=== PATIENT | male | born 1990 | race Caucasian/White ===

== ENCOUNTER 2017-04-26 13:06 | Outpatient (CLI) | payer BC, MEDICAID, SELFPAY | END 2017-04-26 15:50 | disposition home or self-care (01) | PROVIDERS: Family Provider Family Medicine; Visit Provider Internal Medicine Nephrology | DX: M81.0 Age-related osteoporosis without current pathological fracture (principal) | CPT/HCPCS: 80048; 96365; J3489 ==

== ENCOUNTER 2018-09-25 17:41 | Emergency (ER) | payer BC, MEDICAID, SELFPAY ==
[2018-09-25 17:42] VITALS: BP 114/71; PULSE 106; RESP 18; TEMP 37; O2SAT 97; BMI 36.0
--- NOTE | 2018-09-25 17:51 | XR_ITS ---
XR chest AP HISTORY: ITS.REASON: fever cough ORDERING PHYSICIAN: Cody Juares MD PATIENT AGE: 28 years COMPARISON: None FINDINGS: There are extremely low lung volumes with underpenetration. There is cardiomegaly. There is a overlying neurostimulator device present with the tip overlying the left apex of the lung. There is elevated right hemidiaphragm with right basilar atelectasis or infiltrate. The left lower lobe is obscured from the overlying soft tissues. No acute bony findings. IMPRESSION: Limited exam with poor aspiration, cardiomegaly and elevated right hemidiaphragm with right basilar atelectasis or infiltrate
--- NOTE | 2018-09-25 17:53 | HMH.EDGENADL ---
ED Disposition Clinical Impression: Poor fluid intake Disposition: Still a Patient Condition on Discharge: Fair Referrals: Toney Christopher [Primary Care Provider] - - Critical Care Critical Care Time: No Attestation: On , the high probability of a clinically significant, sudden or life threatening deterioration of the following system(s) required my full and direct attention, intervention and personal management. The time I documented below is in addition to time spent performing reported procedures but includes the following listed in this critical care notation. Medical Decision Making - Edy Inquiry Pt receiving controlled substance: No Vital Signs: 09/25/18 17:42 Temperature 98.6 F Temperature Source Axillary Pulse Rate [Right Brachial] 106 H Respiratory Rate 18 Blood Pressure [Right Arm] 114/71 Blood Pressure Mean [Right Arm] 85 Blood Pressure Source [Right Arm] Automatic Cuff Blood Pressure Position [Right Arm] Supine 02 Sat by Pulse Oximetry 97 Oxygen Delivery Method Room Air - Lab Data Lab Results 09/25/18 17:50: WBC 7.3, RBC 5.48, Hgb 15.5, Hct 45.6, MCV 83.2, MCH 28.2, MCHC 33.9, RDW 13.2, Plt Count 415, MPV 7.1 L, Neut % (Auto) 58.2, Lymph % (Auto) 30.9, [place] % (Auto) 6.8, Eos % (Auto) 3.1, Baso % (Auto) 1.0, Neut # (Auto) 4.2, Lymph # (Auto) 2.3, [place] # (Auto) 0.5, Eos # (Auto) 0.2, Baso # (Auto) 0.1 09/25/18 17:50: Sodium 139, Potassium 3.9, Chloride 104, Carbon Dioxide 22, Anion Gap 16.9 H, BUN 16, Creatinine 0.91, Estimated Creat Clear 188, Estimated GFR 99, Est GFR ( Amer) 119, Glucose 107 H, Calcium 8.8, Total Bilirubin 0.3, AST 35, ALT 144 H, Alkaline Phosphatase 168 H, Total Protein 7.7, Albumin 3.4, Globulin 4.3 H, Albumin/Globulin Ratio 0.8 L 09/25/18 18:18: Lactate 1.1 09/25/18 18:18: Monoscreen Negative 09/25/18 18:20: Influenza Type A Ag Negative, Influenza Type B Ag Negative 09/25/18 19:14: Group A Strep Rapid Negative Result diagrams: 09/25/18 17:50 09/25/18 17:50 Orders (Tests/Meds): ED MEDICATIONS Discontinued Medications Generic Name Dose Route Start Last Admin Trade Name Marquisq PRN Reason Stop Dose Admin Ketorolac Tromethamine 30 mg 09/25/18 17:52 09/25/18 18:06 Toradol 30mg/Ml Vial IV 09/25/18 17:53 30 mg ONCE ONE Administration Sodium Chloride 1,000 ml 09/25/18 17:53 09/25/18 18:06 Sod Chlor 0.9% 1000ml Bag IV 09/25/18 17:54 1,000 ml BOLUS ONE Administration ORDERS Category Date Time Status CT abdomen pelvis w con Stat Cat Scan 09/25/18 19:[address] soft tissue neck w con Stat Cat Scan 09/25/18 19:32 Ordered XR chest AP Stat Exams 09/25/18 17:51 Taken Levetiracetam (Keppra) Routine Lab 09/25/18 17:50 Received Lipase Stat Lab 09/25/18 17:50 Received Urinalysis and Microscopic Stat Lab 09/25/18 19:44 Ordered Blood Culture Stat Micro 09/25/18 18:03 Received Strep Screen Confirmation Stat Micro 09/25/18 19:14 Received - Radiology Data #1 Image(s): Chest Image Reviewed: Yes I reviewed the patient's radiology image Technique limited by body habitus. No definite infiltrate seen. Vagal Nerve Stimulator present. Medical Decision Narrative: 8:00 PM: At shift change, I have discussed the patient with Dr. Moseley, who will assume care of the patient at this time. I have discussed all clinical information including history, physical and diagnostic study results. Preliminary diagnoses based on information available at this point have been recorded by me. Controlled substance administration and critical care statement are also preliminary, as of the time of handoff. General Adult HPI - General Chief complaint: Weakness Stated complaint: Dehydration Time Seen by Provider: 09/25/18 17:45 Mode of Arrival: EMS Limitations: Physical Limitations Description of Symptoms (Recalled from ER Triage Doc. by RN): Posible dehydration - History of Present Illness HPI narrative: Brought in by ambulance, histor
--- NOTE | 2018-09-25 17:56 | ED_ITS ---
ED Disposition Clinical Impression: Poor fluid intake Disposition: Still a Patient Condition on Discharge: Fair Referrals: Toney Christopher [Primary Care Provider] - - Critical Care Critical Care Time: No Attestation: On , the high probability of a clinically significant, sudden or life threatening deterioration of the following system(s) required my full and direct attention, intervention and personal management. The time I documented below is in addition to time spent performing reported procedures but includes the following listed in this critical care notation. Medical Decision Making - Edy Inquiry Pt receiving controlled substance: No Vital Signs: 09/25/18 17:42 Temperature 98.6 F Temperature Source Axillary Pulse Rate [Right Brachial] 106 H Respiratory Rate 18 Blood Pressure [Right Arm] 114/71 Blood Pressure Mean [Right Arm] 85 Blood Pressure Source [Right Arm] Automatic Cuff Blood Pressure Position [Right Arm] Supine 02 Sat by Pulse Oximetry 97 Oxygen Delivery Method Room Air - Lab Data Lab Results 09/25/18 17:50: WBC 7.3, RBC 5.48, Hgb 15.5, Hct 45.6, MCV 83.2, MCH 28.2, MCHC 33.9, RDW 13.2, Plt Count 415, MPV 7.1 L, Neut % (Auto) 58.2, Lymph % (Auto) 30.9, [place] % (Auto) 6.8, Eos % (Auto) 3.1, Baso % (Auto) 1.0, Neut # (Auto) 4.2, Lymph # (Auto) 2.3, [place] # (Auto) 0.5, Eos # (Auto) 0.2, Baso # (Auto) 0.1 09/25/18 17:50: Sodium 139, Potassium 3.9, Chloride 104, Carbon Dioxide 22, Anion Gap 16.9 H, BUN 16, Creatinine 0.91, Estimated Creat Clear 188, Estimated GFR 99, Est GFR ( Amer) 119, Glucose 107 H, Calcium 8.8, Total Bilirubin 0.3, AST 35, ALT 144 H, Alkaline Phosphatase 168 H, Total Protein 7.7, Albumin 3.4, Globulin 4.3 H, Albumin/Globulin Ratio 0.8 L 09/25/18 18:18: Lactate 1.1 09/25/18 18:18: Monoscreen Negative 09/25/18 18:20: Influenza Type A Ag Negative, Influenza Type B Ag Negative 09/25/18 19:14: Group A Strep Rapid Negative Result diagrams: 09/25/18 17:50 09/25/18 17:50 Orders (Tests/Meds): ED MEDICATIONS Discontinued Medications Generic Name Dose Route Start Last Admin Trade Name Freq PRN Reason Stop Dose Admin Ketorolac Tromethamine 30 mg 09/25/18 17:52 09/25/18 18:06 Toradol 30mg/Ml Vial IV 09/25/18 17:53 30 mg ONCE ONE Administration Sodium Chloride 1,000 ml 09/25/18 17:53 09/25/18 18:06 Sod Chlor 0.9% 1000ml Bag IV 09/25/18 17:54 1,000 ml BOLUS ONE Administration ORDERS Category Date Time Status CT abdomen pelvis w con Stat Cat Scan 09/25/18 19:[address] soft tissue neck w con Stat Cat Scan 09/25/18 19:32 Ordered XR chest AP Stat Exams 09/25/18 17:51 Taken Levetiracetam (Keppra) Routine Lab 09/25/18 17:50 Received Lipase Stat Lab 09/25/18 17:50 Received Urinalysis and Microscopic Stat Lab 09/25/18 19:44 Ordered Blood Culture Stat Micro 09/25/18 18:03 Received Strep Screen Confirmation Stat Micro 09/25/18 19:14 Received - Radiology Data #1 Image(s): Chest Image Reviewed: Yes I reviewed the patient's radiology image Technique limited by body habitus. No definite infiltrate seen.
[2018-09-25 18:02] LABS: Basophils # 0.1 K/mm3 (0-0.2); Eosinophils # 0.2 K/mm3 (0.0-0.4); Eosinophils % 3.1 % (0.1-12.0); Hematocrit 45.6 % (42.0-52.0); Hemoglobin 15.5 g/dL (14.1-18.0); Lymphocytes # 2.3 K/mm3 (0.7-4.5); Lymphocytes % 30.9 % (10-50); Mean Corpuscular HGB Conc 33.9 g/dL (31.8-35.4); Mean Corpuscular Hemoglobin 28.2 pg (27.0-31.2); Mean Corpuscular Volume 83.2 fl (80-94); Mean Platelet Volume 7.1 fl (7.4-10.4); Monocytes # 0.5 K/mm3 (0.1-1.0); Monocytes % 6.8 % (1.7-9.3); Neutrophils # 4.2 K/mm3 (1.8-7.8); Neutrophils % 58.2 % (37.0-80.0); Platelet Count 415 K/mm3 (142-424); Red Blood Count 5.48 M/mm3 (4.60-6.20); Red Cell Distribution Width 13.2 % (11.5-17.5); White Blood Count 7.3 K/mm3 (4.8-10.8)
[2018-09-25 18:11] LABS: Alanine Aminotransferase 144 U/L (12-78); Albumin Level 3.4 gm/dL (3.4-5.0); Albumin/Globulin Ratio 0.8 (1.1-1.8); Alkaline Phosphatase 168 U/L (46-116); Anion Gap 16.9 mEq/L (5-15); Aspartate Amino Transferase 35 U/L (15-37); Bilirubin,Total 0.3 mg/dL (0.2-1.0); Blood Urea Nitrogen 16 mg/dL (7-18); Calcium 8.8 mg/dL (8.5-10.1); Carbon Dioxide 22 mmol/L (21.0-32.0); Chloride 104 mmol/L (98-107); Creatinine Clearance Estimated 188 mL/min (50-200); Creatinine,Serum 0.91 mg/dL (0.70-1.30); Estimated Glomerular Filt Rate 99 ml/min (>60); GFR (African American) 119 ML/MIN (>60); Globulin 4.3 gm/dl (1.3-3.2); Glucose 107 mg/dL (74-106); Potassium 3.9 mmoL/L (3.5-5.1); Sodium 139 mmol/L (136-145); Total Protein,Serum 7.7 gm/dL (6.4-8.2)
[2018-09-25 18:31] LABS: Monoscreen (Rapid) Negative (Negative)
[2018-09-25 18:41] LABS: Lactic Acid 1.1 mmol/L (0.4-2.0)
--- NOTE | 2018-09-25 19:15 | PC.NURSE ---
1909 - called lab to see what the results about he strep swab. lab reports that there was never a strep screen sent. informed lab that there was in fact a strep swab sent. lab stated they didn't have one, and that the patient would need to be swabbed again. 1914 - pt reswabbed again, and while RN was sending 2nd strep swab was being sent at this time, lab called and stated they found the swab. notified.
[2018-09-25 19:25] LABS: Strep Scrn Group A (Rapid) Negative (Negative)
[2018-09-25 20:07] LABS: Lipase 110 u/L (73-393)
[2018-09-25 20:36] LABS: Microscopic, Urine URINE MICROSCOPIC (MICROSCOPIC)
[2018-09-25 20:37] LABS: Appearance,Urine CLEAR (Clear); Bilirubin,Urine Negative (Negative); Blood, Urine Negative (Negative); Color,Urine YELLOW (Yellow); Glucose,Urine (UA) Negative (Negative); Ketones,Urine Negative (Negative); Leukocyte Esterase,Urine Negative (Negative); Nitrate,Urine Negative (Negative); Protein,Urine Negative (Negative); Specific Gravity, Urine 1.015 (1.005-1.030); Urobilinogen,Urine 0.2 EU/dl (0.2)
[2018-09-25 20:50] LABS: Bacteria,Urine Trace /lpf; WBC,Urine Occasional #/hpf (0-3)
[2018-09-25 21:08] VITALS: BP 106/51; PULSE 80; RESP 15; TEMP 36.7; O2SAT 98
[2018-09-25 21:34] VITALS: BP 107/59; PULSE 85; RESP 17; TEMP 36.8; O2SAT 97
[2018-09-30 17:08] LABS: Levetiracetam (Keppra) 44.1 ug/mL (10.0-40.0)
== END 2018-09-25 21:37 | disposition home or self-care (01) ==
PROVIDERS: Emergency Provider Emergency Medicine; PCP Family Medicine
DX: E86.0 Dehydration (principal); R63.8 Other symptoms and signs concerning food and fluid intake; R56.9 Unspecified convulsions; G80.9 Cerebral palsy, unspecified
CPT/HCPCS: 36415; 71045; 80053; 80177; 81001; 83605; 83690; 85025; 86318; 87040; 87077; 87086; 87186; 87275; 87276; 87430; 96365; 96367; 96375; 99284

== ENCOUNTER 2018-09-27 11:42 | Observation (INO) ==
--- NOTE | 2018-09-27 11:42 | Emergency Department Note ---
ED Disposition Clinical Impression: Bacteremia due to Gram-positive bacteria Disposition: Admitted as Observation Condition on Discharge: Good Referrals: Toney Christopher [Primary Care Provider] - Time of Disposition: 14:00 - Critical Care Critical Care Time: No Attestation: On , the high probability of a clinically significant, sudden or life threatening deterioration of the following system(s) required my full and direct attention, intervention and personal management. The time I documented below is in addition to time spent performing reported procedures but includes the fo peteg listed in this critical care notation. Medical Decision Making - Medical Records Medical records reviewed: Yes: I reviewed the patient's medical records. - Edy Inquiry Pt receiving controlled substance: No Edy was queried for this patient: No Vital Signs: 09/27/18 11:35 Temperature 98.6 F Temperature Source Temporal Artery Scan Pulse Rate [Right Brachial] 91 H Respiratory Rate 18 Blood Pressure [Right Arm] 119/91 H Blood Pressure Mean [Right Arm] 100 Blood Pressure Source [Right Arm] Automatic Cuff Blood Pressure Position [Right Arm] Sitting 02 Sat by Pulse Oximetry 97 Oxygen Delivery Method Room Air - Lab Data Lab results reviewed: Yes: I reviewed the patient's lab results. Lab Results 09/27/18 11:50: WBC 7.8, RBC 5.42, Hgb 14.9, Hct 46.0, MCV 84.9, MCH 27.6, MCHC 32.5, RDW 13.3, Plt Count 415, MPV 7.0 L, Neut % (Auto) 63.1, Lymph % (Auto) 26.7, [place] % (Auto) 6.3, Eos % (Auto) 2.8, Baso % (Auto) 1.0, Neut # (Auto) 5.0, Lymph # (Auto) 2.1, [place] # (Auto) 0.5, Eos # (Auto) 0.2, Baso # (Auto) 0.1 09/27/18 11:50: Sodium 140, Potassium 4.0, Chloride 107, Carbon Dioxide 26, Anion Gap 11.0, BUN 18, Creatinine 1.01, Estimated Creat Clear 180, Estimated GFR 87, Est GFR ( Amer) 106, Glucose 82, Calcium 8.6, Total Bilirubin 0.2, AST 37, ALT 145 H, Alkaline Phosphatase 167 H, Total Protein 7.7, Albumin 3.5, Globulin 4.2 H, Albumin/Globulin Ratio 0.8 L 09/27/18 11:50: Lactate 1.3 Result diagrams: 09/27/18 11:50 09/27/18 11:50 Orders (Tests/Meds): ED MEDICATIONS Discontinued Medications Generic Name Dose Route Start Last Admin Trade Name Pawel PRN Reason Stop Dose Admin Sodium Chloride 1,000 mls @ 999 mls/hr 09/27/18 12:00 09/27/18 12:41 Sod Chlor 0.9% 1000ml Bag IV 09/27/18 13:00 999 mls/hr .Q1H1M MARGIE Administration Sodium Chloride 1,000 mls @ 999 mls/hr 09/27/18 12:15 Sod Chlor 0.9% 1000ml Bag IV 09/27/18 13:15 .Q1H1M MARGIE - Physician Consults Physician Consulted: med Time: 14:00 Reason -: Admission, Pt condition General Adult HPI - General Chief complaint: Fever Stated complaint: pos blood cultures Time Seen by Provider: 09/27/18 11:41 Mode of Arrival: EMS Source of Information: Parent(s) Limitations: Physical Limitations - History of Present Illness HPI narrative: sick for weeks with sinus symtoms and ? sore throat. Seen here two nights a go, given rocephin and sent home on keflex. all labs were normal. Two blood culture bottles however returned gr + cocci - Related Data Home Medications Medication Instructions Recorded Confirmed Clobazam [Onfi] 20 mg PO BID 09/25/18 09/25/18 Montelukast Sodium [Singulair 10mg 10 mg PO PM 09/25/18 09/25/18 tablet] Omeprazole Magnesium [Prilosec Otc 20 mg PO DAILY 09/25/18 09/25/18 20mg Tab] Topiramate [Topamax 100mg tablet] 300 mg PO DAILY 09/25/18 09/25/18 Topiramate [Topamax 100mg tablet] 500 mg PO HS 09/25/18 09/25/18 Zonisamide [Zonegran] 150 mg PO BID 09/25/18 09/25/18 levETIRAcetam [Keppra 500mg tablet] 2,000 mg PO BID 09/25/18 09/25/18 Allergies Allergy/AdvReac Type Severity Reaction Status Date / Time carbamazepine [From TEGRETOL] Allergy Mild Verified 09/25/18 17:49 [facility] [place] History - Hepatitis A Screen Attestation statement:: This patient has been screened for Hepatitis A risk factors. I have reviewed the patient's past medical history: Yes ROS Obtained: Yes All systems reviewed & no additional complaints - Constitutional Constitutional: Reports weakness - Eyes Eyes: Denies eye discharge - ENT Ears, Nose, Mouth, and Throat: Denies neck pain, Reports post nasal drip, Reports sinus pressure, Reports sore throat - Cardiovascular Cardiovascular: Denies chest pain, Denies chest pain at rest, Denies diaphoresis, Denies dyspnea - Respiratory Respiratory: No chest congestion, No cough - Gastrointestinal Gastrointestingal: Denies: abdominal pain, diarrhea, vomiting - Musculoskeletal Musculoskeletal: Denies joint stiffness, Denies joint swelling, Reports muscle weakness - Integumentary/Breasts Skin/Breast: Denies rash, Denies wounds - Neurologic Neurologic: Denies headache(s) - Hematologic/Lymphatic Henatologic/Lymphatic: Denies easy bleeding, Denies easy bruising Physical Exam - General General appearance: alert, in no apparent distress, lethargic - Head Head exam: atraumatic, normocephalic, normal inspection - Eye Eye exam: Present: normal appearance, PERRL, EOMI - ENT ENT exam: Present: other (dried post phar secretions, dry mucous membranes). Absent: normal exam, normal oropharynx - Neck Neck exam: Present: normal inspection, full ROM, trachea midline. Absent: meningismus, lymphadenopathy - Respiratory Respiratory exam: Present: normal lung sounds bilaterally. Absent: respiratory distress - Cardiovascular Cardiovascular exam: Present: regular rate, normal rhythm. Absent: JVD - Abdominal Exam Abdominal exam: Present: soft, normal bowel sounds. Absent: distention, tenderness, guarding - Extremities Exam Extremities exam: Present: normal inspection, full ROM, normal capillary refill. Absent: calf tenderness - Back Exam Back exam: Present: normal inspection. Absent: tenderness - Neurological Exam Neurological exam: Present: alert, oriented X3 - Psychiatric Psychiatric exam: Present: flat affect - Skin Skin exam: Present: warm, dry, intact, normal color - Lymphatic Lymphatic Findings: no adenopathy
[2018-09-27 12:11] LABS: Basophils # 0.1 K/mm3 (0-0.2); Eosinophils # 0.2 K/mm3 (0.0-0.4); Eosinophils % 2.8 % (0.1-12.0); Hemoglobin 14.9 g/dL (14.1-18.0); Lymphocytes # 2.1 K/mm3 (0.7-4.5); Lymphocytes % 26.7 % (10-50); Mean Corpuscular HGB Conc 32.5 g/dL (31.8-35.4); Mean Corpuscular Hemoglobin 27.6 pg (27.0-31.2); Mean Corpuscular Volume 84.9 fl (80-94); Monocytes # 0.5 K/mm3 (0.1-1.0); Monocytes % 6.3 % (1.7-9.3); Neutrophils % 63.1 % (37.0-80.0); Platelet Count 415 K/mm3 (142-424); Red Blood Count 5.42 M/mm3 (4.60-6.20); Red Cell Distribution Width 13.3 % (11.5-17.5); White Blood Count 7.8 K/mm3 (4.8-10.8)
[2018-09-27 12:18] LABS: Albumin Level 3.5 gm/dL (3.4-5.0); Albumin/Globulin Ratio 0.8 (1.1-1.8); Bilirubin,Total 0.2 mg/dL (0.2-1.0); Calcium 8.6 mg/dL (8.5-10.1); Globulin 4.2 gm/dl (1.3-3.2); Total Protein,Serum 7.7 gm/dL (6.4-8.2)
--- NOTE | 2018-09-27 15:15 | Pharmacy Consult Notes ---
[facility] Pharmacy VTE Monitoring - Patient Demographics Admission date: 09/27/18 Report Date: 09/27/18 Time: 15:15 Allergies/Adverse Reactions: Patient Allergies carbamazepine [From TEGRETOL] Allergy (Mild, Verified 09/25/18 17:49) Height: 1.83 m Weight: 117.934 kg Patient Problems: Current Active Problems (Updated 09/27/18 @ 14:01 by Benjamin Montiel MD) Bacteremia due to Gram-positive bacteria (Acute) - VTE Risk Labs: VTE Related Lab Results Hgb 14.9 g/dL (14.1-18.0) 09/27/18 11:50 Hct 46.0 % (42.0-52.0) 09/27/18 11:50 Plt Count 415 K/mm3 (142-424) 09/27/18 11:50 BUN 18 mg/dL (7-18) 09/27/18 11:50 Creatinine 1.01 mg/dL (0.70-1.30) 09/27/18 11:50 Estimated Creat Clear 180 mL/min (50-200) 09/27/18 11:50 Was VTE Risk Assessment Performed: Yes VTE Score: 6 VTE Risk Level: Moderate Risk - Prophylaxis VTE Prophylaxis Ordered?: Yes Types of VTE Prophylaxis: TEDS Knee High Location of Applied Device: Bilateral Lower Extremeties - VTE Diagnosis Confirmed Treatment or plan recommended: Continue Current Treatment
--- NOTE | 2018-09-27 17:50 | History & Physical Report ---
*Admission Date: 09/27/18 <Merced Rubio 09/27/18 17:56> *Chief complaint: weakness <Merced Rubio 09/27/18 17:56> *History of present illness: Mr. richter is a 28-year-old male with a history of mental retardation, autism, and seizures who has been feeling poorly for the past few weeks. His mother states he had a cold a few weeks ago and within the past week he stopped eating and drinking. He has been extremely weak. He has been having an increase in the number of seizures and his mother states this is normal when he gets sick. He was seen in the emergency room on Monday due to this weakness. His mother states she was told he may have a UTI and he was sent home on antibiotics. Cultures were obtained at that time. The patient's mother received a call from Dr. Moseley last night stating that the patient's blood cultures were positive. He therefore presented back to the emergency room this morning for further evaluation and admission for IV antibiotics. His primary care provider is Dr. Christopher and his neurologist is Dr. Bledsoe. <Merced Rubio 09/27/18 17:56> [facility] History Medical History: Reports:: Gastroesophageal Reflux Disease(GERD), Seizures Denies:: Diabetes Mellitus Type 1, Diabetes Mellitus Type 2, MRSA <Merced Rubio 09/27/18 17:56> *Have you ever received a pneumonia vaccine?: No <Merced Rubio 09/27/18 17:56> *Have you received a flu vaccine this season?: Yes <Merced Rubio 09/27/18 17:56> Other Medical History: Reports: Anemia, Other (Mental retardation, Autism) <Merced Rubio 09/27/18 17:56> Other Surgeries: Yes: EGD, Other (brain surgery age 2, Jtube placement) <Merced Rubio 09/27/18 17:56> - *Social History Alcohol Intake: never <Merced Rubio 09/27/18 17:56> *Occupational Status:: disabled <Merced Rubio 09/27/18 17:56> Household Members: family <Merced Rubio 09/27/18 17:56> *Travel in the last 8 weeks: None <Merced Rubio 09/27/18 17:56> - Psychiatric History Expresses thoughts of harming self/others: None <Merced Rubio 09/27/18 17:56> Suicide Plan Description: No Plan <Merced Rubio 09/27/18 17:56> Family Hx:: Cancer, Diabetes, Heart Attack, Hypertension <Merced Rubio 09/27/18 17:56> Review of Systems - Constitutional Reports fever(s), Reports weakness <Merced Rubio 09/27/18 17:56> - Eyes Denies blurry vision, Denies double vision <Merced Rubio 09/27/18 17:56> - ENT Reports nasal congestion, Reports sore throat <Merced Rubio 09/27/18 17:56> - *Cardiovascular Denies chest pain, Denies rapid, pounding, or irregular heartbeat <Merced Rubio 09/27/18 17:56> - *Respiratory Reports shortness of breath, Denies cough <Merced Rubio 09/27/18 17:56> - *Gastrointestinal Denies abdominal pain, Denies loose stools, Denies nausea, Denies vomiting <Merced Rubio 09/27/18 17:56> - *Genitourinary Reports decreased urination <Merced Rubio 09/27/18 17:56> - *Musculoskeletal Reports muscle weakness <Merced Rubio 09/27/18 17:56> - *Neurologic Reports weakness, Denies headache(s) <Merced Rubio 09/27/18 17:56> Meds Home Medications Medication Instructions Recorded Confirmed Type Clobazam [Onfi] 20 mg PO BID 09/25/18 09/27/18 History Montelukast Sodium [Singulair 10mg 10 mg PO PM 09/25/18 09/27/18 History tablet] Topiramate [Topamax 100mg tablet] 300 mg PO DAILY 09/25/18 09/27/18 History Topiramate [Topamax 100mg tablet] 500 mg PO HS 09/25/18 09/27/18 History Zonisamide [Zonegran] 150 mg PO BID 09/25/18 09/27/18 History levETIRAcetam [Keppra 500mg tablet] 2,000 mg PO BID 09/25/18 09/27/18 History raNITIdine HCl [Ranitidine HCl] 150 mg PO BID 09/27/18 09/27/18 History <AdrienDuke - 09/27/18 18:37> Allergies Allergy/AdvReac Type Severity Reaction Status Date / Time carbamazepine [From TEGRETOL] Allergy Mild Verified 09/25/18 17:49 <AdrienDuke - 09/27/18 18:37> Exam Vital signs and Labs for Last 24 Hours: Temp Pulse Resp BP Pulse Ox 99.3 F 113 H 18 105/76 L 97 09/27/18 15:22 09/27/18 18:10 09/27/18 15:22 09/27/18 15:22 09/27/18 16:16 Laboratory Results - last 24 hr 09/27/18 11:50: WBC 7.8, RBC 5.42, Hgb 14.9, Hct 46.0, MCV 84.9, MCH 27.6, MCHC 32.5, RDW 13.3, Plt Count 415, MPV 7.0 L, Neut % (Auto) 63.1, Lymph % (Auto) 26.7, [place] % (Auto) 6.3, Eos % (Auto) 2.8, Baso % (Auto) 1.0, Neut # (Auto) 5.0, Lymph # (Auto) 2.1, [place] # (Auto) 0.5, Eos # (Auto) 0.2, Baso # (Auto) 0.1 09/27/18 11:50: Sodium 140, Potassium 4.0, Chloride 107, Carbon Dioxide 26, Anion Gap 11.0, BUN 18, Creatinine 1.01, Estimated Creat Clear 180, Estimated GFR 87, Est GFR ( Amer) 106, Glucose 82, Calcium 8.6, Total Bilirubin 0.2, AST 37, ALT 145 H, Alkaline Phosphatase 167 H, Total Protein 7.7, Albumin 3.5, Globulin 4.2 H, Albumin/Globulin Ratio 0.8 L 09/27/18 11:50: Lactate 1.3 <AdrienDuke - 09/27/18 18:37> Temp Pulse Resp BP Pulse Ox 99.3 F 67 18 105/76 L 97 09/27/18 15:22 09/27/18 16:16 09/27/18 15:22 09/27/18 15:22 09/27/18 16:16 Laboratory Results - last 24 hr 09/27/18 11:50: WBC 7.8, RBC 5.42, Hgb 14.9, Hct 46.0, MCV 84.9, MCH 27.6, MCHC 32.5, RDW 13.3, Plt Count 415, MPV 7.0 L, Neut % (Auto) 63.1, Lymph % (Auto) 26.7, [place] % (Auto) 6.3, Eos % (Auto) 2.8, Baso % (Auto) 1.0, Neut # (Auto) 5.0, Lymph # (Auto) 2.1, [place] # (Auto) 0.5, Eos # (Auto) 0.2, Baso # (Auto) 0.1 09/27/18 11:50: Sodium 140, Potassium 4.0, Chloride 107, Carbon Dioxide 26, Anion Gap 11.0, BUN 18, Creatinine 1.01, Estimated Creat Clear 180, Estimated GFR 87, Est GFR ( Amer) 106, Glucose 82, Calcium 8.6, Total Bilirubin 0.2, AST 37, ALT 145 H, Alkaline Phosphatase 167 H, Total Protein 7.7, Albumin 3.5, Globulin 4.2 H, Albumin/Globulin Ratio 0.8 L 09/27/18 11:50: Lactate 1.3 <Merced Rubio - 09/27/18 17:56> I & O for Last 24 hours: Intake & Output 09/24/18 09/25/18 09/26/18 09/27/18 23:59 23:59 23:59 23:59 Intake Total 1690 / 1690 Balance 1690 / 1690 Weight 273 lb 3 oz <Harborton,Duke - 09/27/18 18:37> Intake & Output 09/25/18 09/26/18 09/27/18 09/28/18 11:59 11:59 11:59 11:59 Intake Total 1450 / 1450 Balance 1450 / 1450 Weight 260 lb 273 lb 3 oz <Merced Rubio - 09/27/18 17:56> - Constitutional no acute distress <Merced Rubio - 09/27/18 17:56> - *Routine HEENT Exam Head: Present: normocephalic <Merced Rubio 09/27/18 17:56> Eye: Present: EOMI, PERRL <Merced Rubio 09/27/18 17:56> ENT: Present: mucous membranes dry <Merced Rubio 09/27/18 17:56> - *Routine Neck Exam Present: supple. Absent: lymphadenopathy <Merced Rubio 09/27/18 17:56> - *Routine Respiratory Exam Present: CTA bilaterally <Merced Rubio 09/27/18 17:56> - *Routine Cardiovascular Exam Present: RRR <Merced Rubio 09/27/18 17:56> - *Routine Abdominal Exam Present: soft, normoactive bowel sounds. Absent: tenderness <Merced Rubio 09/27/18 17:56> - *Routine Extremities Exam Absent: cyanosis, clubbing, edema <Merced Rubio 09/27/18 17:56> - *Routine Skin Exam Present: warm. Absent: rash <Merced Rubio 09/27/18 17:56> - *Routine Neurological Exam Patient can move both arms but does have some spasticity, he will not move his legs. He is nonverbal but was able to give a "high 5" at the end of the exam <Merced Rubio 09/27/18 17:56> H&P: Result - Impressions CXR - Overall no change cardiomegaly with low lung volumes and right basilar airspace disease. <Merced Rubio 09/27/18 17:56> Assessment and Plan (1) Poor fluid intake Current visit: No Status: Acute Category: Medical Code(s): R63.8 - Other symptoms and signs concerning food and fluid intake (2) Bacteremia due to Gram-positive bacteria Current visit: Yes Status: Acute Category: Medical Code(s): R78.81 - Bacteremia (3) Weakness Current visit: Yes Status: Acute Category: Medical Code(s): R53.1 - Weakness (4) Autism Current visit: Yes Status: Chronic Category: Medical Code(s): F84.0 - Autistic disorder (5) Seizure disorder Current visit: Yes Status: Chronic Category: Medical Code(s): G40.909 - Epilepsy, unspecified, not intractable, without status epilepticus (6) Elevated LFTs Current visit: Yes Status: Acute Category: Medical Code(s): R94.5 - Abnormal results of liver function studies <Duke Jurado - 09/27/18 18:37> (1) Poor fluid intake Current visit: No Status: Acute Category: Medical Code(s): R63.8 - Other symptoms and signs concerning food and fluid intake (2) Bacteremia due to Gram-positive bacteria Current visit: Yes Status: Acute Category: Medical Code(s): R78.81 - Bacteremia (3) Weakness Current visit: Yes Status: Acute Category: Medical Code(s): R53.1 - Weakness (4) Autism Current visit: Yes Status: Chronic Category: Medical Code(s): F84.0 - Autistic disorder (5) Seizure disorder Current visit: Yes Status: Chronic Category: Medical Code(s): G40.909 - Epilepsy, unspecified, not intractable, without status epilepticus (6) Elevated LFTs Current visit: Yes Status: Acute Category: Medical Code(s): R94.5 - Abnormal results of liver function studies <Merced Rubio - 09/27/18 17:47> - Assessment and plan all Dx Assessment and Plan for all problems:: Saw patient, agree with above note. It does not appear that patient's primary MD was consulted/notified about his current illness. Will continue current care. <Duke Jurado - 09/27/18 18:37> Patient has been started on IV fluids and broad-spectrum antibiotics. Will await final blood cultures. His urine culture from the ER visit on Monday showed no growth. Will discuss further care with Dr. Jurado as well as which home medications to restart. <Merced Rubio - 09/27/18 17:56>
[2018-09-28 07:04] LABS: Basophils % 0.2 % (0.1-2.0); Eosinophils % 0.4 % (0.1-12.0); Hematocrit 41.8 % (42.0-52.0); Hemoglobin 13.8 g/dL (14.1-18.0); Lymphocytes # 1.8 K/mm3 (0.7-4.5); Lymphocytes % 17.9 % (10-50); Mean Corpuscular HGB Conc 33.1 g/dL (31.8-35.4); Mean Corpuscular Hemoglobin 28.3 pg (27.0-31.2); Mean Corpuscular Volume 85.5 fl (80-94); Mean Platelet Volume 7.3 fl (7.4-10.4); Monocytes # 0.6 K/mm3 (0.1-1.0); Monocytes % 5.9 % (1.7-9.3); Neutrophils # 7.5 K/mm3 (1.8-7.8); Neutrophils % 75.5 % (37.0-80.0); Platelet Count 379 K/mm3 (142-424); Red Blood Count 4.89 M/mm3 (4.60-6.20); Red Cell Distribution Width 13.2 % (11.5-17.5); White Blood Count 9.9 K/mm3 (4.8-10.8)
[2018-09-28 07:19] LABS: Anion Gap 13.8 mEq/L (5-15); Calcium 8.3 mg/dL (8.5-10.1); Potassium 3.8 mmoL/L (3.5-5.1)
--- NOTE | 2018-09-28 08:30 | Progress Note ---
<Merced Rubio - Last Filed: 09/28/18 08:26> Internal Medicine - PN: Subj *Date: 09/28/18 *Time: 08:26 Interval history: Patient's mother states he seems a little bit better this morning. He still refuses to drink and the only thing he will eat is putting. He slept well last night. Exam Vital signs and Labs for Last 24 Hours: Temp Pulse Resp BP Pulse Ox 98.0 F 81 17 118/67 94 L 09/28/18 04:00 09/28/18 04:00 09/28/18 04:00 09/28/18 04:00 09/28/18 04:00 Laboratory Results - last 24 hr 09/27/18 11:50: WBC 7.8, RBC 5.42, Hgb 14.9, Hct 46.0, MCV 84.9, MCH 27.6, MCHC 32.5, RDW 13.3, Plt Count 415, MPV 7.0 L, Neut % (Auto) 63.1, Lymph % (Auto) 26.7, [place] % (Auto) 6.3, Eos % (Auto) 2.8, Baso % (Auto) 1.0, Neut # (Auto) 5.0, Lymph # (Auto) 2.1, [place] # (Auto) 0.5, Eos # (Auto) 0.2, Baso # (Auto) 0.1 09/27/18 11:50: Sodium 140, Potassium 4.0, Chloride 107, Carbon Dioxide 26, Anion Gap 11.0, BUN 18, Creatinine 1.01, Estimated Creat Clear 180, Estimated GFR 87, Est GFR ( Amer) 106, Glucose 82, Calcium 8.6, Total Bilirubin 0.2, AST 37, ALT 145 H, Alkaline Phosphatase 167 H, Total Protein 7.7, Albumin 3.5, Globulin 4.2 H, Albumin/Globulin Ratio 0.8 L 09/27/18 11:50: Lactate 1.3 09/28/18 06:30: WBC 9.9 D, RBC 4.89, Hgb 13.8 L, Hct 41.8 L, MCV 85.5, MCH 28.3, MCHC 33.1, RDW 13.2, Plt Count 379, MPV 7.3 L, Neut % (Auto) 75.5, Lymph % (Auto) 17.9, [place] % (Auto) 5.9, Eos % (Auto) 0.4, Baso % (Auto) 0.2, Neut # (Auto) 7.5, Lymph # (Auto) 1.8, [place] # (Auto) 0.6, Eos # (Auto) 0.0, Baso # (Auto) 0.0 09/28/18 06:30: Sodium 139, Potassium 3.8, Chloride 109 H, Carbon Dioxide 20 L D , Anion Gap 13.8, BUN 11 D, Creatinine 0.71 D, Estimated Creat Clear 269, Estimated GFR 131, Est GFR ( Amer) 159 D, Glucose 100 D, Calcium 8.3 L I & O for Last 24 hours: Intake & Output 09/25/18 09/26/18 09/27/18 09/28/18 11:59 11:59 11:59 11:59 Intake Total 1690 / 1690 Balance 1690 / 1690 Weight 260 lb 272 lb 2 oz - Constitutional no acute distress - *Routine Respiratory Exam Present: CTA bilaterally - *Routine Cardiovascular Exam Present: RRR - *Routine Abdominal Exam Present: soft (Nodes in normal and can probably go home which would be a good), normoactive bowel sounds. Absent: tenderness - *Routine Extremities Exam Absent: cyanosis, clubbing, edema Assessment and Plan (1) Poor fluid intake Current visit: No Status: Acute Category: Medical Code(s): R63.8 - Other symptoms and signs concerning food and fluid intake (2) Bacteremia due to Gram-positive bacteria Current visit: Yes Status: Acute Category: Medical Code(s): R78.81 - Bacteremia (3) Weakness Current visit: Yes Status: Acute Category: Medical Code(s): R53.1 - Weakness (4) Autism Current visit: Yes Status: Chronic Category: Medical Code(s): F84.0 - Autistic disorder (5) Seizure disorder Current visit: Yes Status: Chronic Category: Medical Code(s): G40.909 - Epilepsy, unspecified, not intractable, without status epilepticus (6) Elevated LFTs Current visit: Yes Status: Acute Category: Medical Code(s): R94.5 - Abnormal results of liver function studies (7) Bacteremia due to Staphylococcus epidermidis Current visit: Yes Status: Acute Category: Medical Code(s): R78.81 - Bacteremia - Assessment and plan all Dx Assessment and Plan for all problems:: Patient does appear better today. His blood cultures are back and are positive for staph epidermidis. May need to change antibiotics. Will discuss with Dr. Jurado. <Duke Jurado - Last Filed: 09/28/18 08:54> Internal Medicine - PN: Subj *Date: 09/28/18 *Time: 08:53 Exam Vital signs and Labs for Last 24 Hours: Temp Pulse Resp BP Pulse Ox 98.0 F 81 17 118/67 94 L 09/28/18 04:00 09/28/18 04:00 09/28/18 04:00 09/28/18 04:00 09/28/18 04:00 Laboratory Results - last 24 hr 09/27/18 11:50: WBC 7.8, RBC 5.42, Hgb 14.9, Hct 46.0, MCV 84.9, MCH 27.6, MCHC 32.5, RDW 13.3, Plt Count 415, MPV 7.0 L, Neut % (Auto) 63.1, Lymph % (Auto) 26.7, [place] % (Auto) 6.3, Eos % (Auto) 2.8, Baso % (Auto) 1.0, Neut # (Auto) 5.0, Lymph # (Auto) 2.1, [place] # (Auto) 0.5, Eos # (Auto) 0.2, Baso # (Auto) 0.1 09/27/18 11:50: Sodium 140, Potassium 4.0, Chloride 107, Carbon Dioxide 26, Anion Gap 11.0, BUN 18, Creatinine 1.01, Estimated Creat Clear 180, Estimated GFR 87, Est GFR ( Amer) 106, Glucose 82, Calcium 8.6, Total Bilirubin 0.2, AST 37, ALT 145 H, Alkaline Phosphatase 167 H, Total Protein 7.7, Albumin 3.5, Globulin 4.2 H, Albumin/Globulin Ratio 0.8 L 09/27/18 11:50: Lactate 1.3 09/28/18 06:30: WBC 9.9 D, RBC 4.89, Hgb 13.8 L, Hct 41.8 L, MCV 85.5, MCH 28.3, MCHC 33.1, RDW 13.2, Plt Count 379, MPV 7.3 L, Neut % (Auto) 75.5, Lymph % (Auto) 17.9, [place] % (Auto) 5.9, Eos % (Auto) 0.4, Baso % (Auto) 0.2, Neut # (Auto) 7.5, Lymph # (Auto) 1.8, [place] # (Auto) 0.6, Eos # (Auto) 0.0, Baso # (Auto) 0.0 09/28/18 06:30: Sodium 139, Potassium 3.8, Chloride 109 H, Carbon Dioxide 20 L D , Anion Gap 13.8, BUN 11 D, Creatinine 0.71 D, Estimated Creat Clear 269, Estimated GFR 131, Est GFR ( Amer) 159 D, Glucose 100 D, Calcium 8.3 L I & O for Last 24 hours: Intake & Output 09/25/18 09/26/18 09/27/18 09/28/18 23:59 23:59 23:59 23:59 Intake Total 1690 / 1690 Balance 1690 / 1690 Weight 273 lb 3 oz 272 lb 2 oz Assessment and Plan (1) Poor fluid intake Current visit: No Status: Acute Category: Medical Code(s): R63.8 - Other symptoms and signs concerning food and fluid intake (2) Bacteremia due to Gram-positive bacteria Current visit: Yes Status: Acute Category: Medical Code(s): R78.81 - Bacteremia (3) Weakness Current visit: Yes Status: Acute Category: Medical Code(s): R53.1 - Weakness (4) Autism Current visit: Yes Status: Chronic Category: Medical Code(s): F84.0 - Autistic disorder (5) Seizure disorder Current visit: Yes Status: Chronic Category: Medical Code(s): G40.909 - Epilepsy, unspecified, not intractable, without status epilepticus (6) Elevated LFTs Current visit: Yes Status: Acute Category: Medical Code(s): R94.5 - Abnormal results of liver function studies (7) Bacteremia due to Staphylococcus epidermidis Current visit: Yes Status: Acute Category: Medical Code(s): R78.81 - Bacteremia - Assessment and plan all Dx Assessment and Plan for all problems:: Patient has improved with IV hydration. Blood culture is likely a contaminant. OK for discharge today on oral antibiotics and Dexamethasone for 5 days. F/U with primary MD in 1 week.
--- NOTE | 2018-09-28 11:36 | Discharge Summary ---
General - General Admission date:: 09/27/18 <Duke Jurado - 09/28/18 13:04> 09/27/18 <RikkiRichard graya - 09/28/18 11:36> Discharge date: 09/28/18 <RikkiMerced gray - 09/28/18 11:36> HPI HPI: Mr. richter is a 28-year-old male with a history of mental retardation, autism, and seizures who has been feeling poorly for the past few weeks. His mother states he had a cold a few weeks ago and within the past week he stopped eating and drinking. He has been extremely weak. He has been having an increase in the number of seizures and his mother states this is normal when he gets sick. He was seen in the emergency room on Monday due to this weakness. His mother states she was told he may have a UTI and he was sent home on antibiotics. Cultures were obtained at that time. The patient's mother received a call from Dr. Moseley last night stating that the patient's blood cultures were positive. He therefore presented back to the emergency room this morning for further evaluation and admission for IV antibiotics. His primary care provider is Dr. Christopher and his neurologist is Dr. Bledsoe. <RikkiRichard graya - 09/28/18 11:36> Hospital Course Hospital Course: The patient's chest x-ray showed cardiomegaly with low lung volumes. His labs were relatively unremarkable other than a slightly elevated ALT and alkaline phosphatase. He was started on IV fluids and broad-spectrum antibiotics with blood cultures pending. His urine culture from his initial ER visit showed no growth. He was restarted on his home medications. The patient did improve with IV fluids. He continued to refuse to drink and would only eat pudding. He began sleeping better. His blood cultures did return positive for staph epidermidis which was felt to be a contaminant. He was stable to be discharged home on oral antibiotics and dexamethasone for 5 days and he will need to follow-up with his primary care provider in 1 week. <RikkiMerced gray - 09/28/18 11:36> Objective Vital signs: Temp Pulse Resp BP Pulse Ox 97.6 F 75 18 116/86 96 09/28/18 08:00 09/28/18 08:00 09/28/18 08:00 09/28/18 08:00 09/28/18 08:00 <Duke Jurado - 09/28/18 13:04> Temp Pulse Resp BP Pulse Ox 97.6 F 75 18 116/86 96 09/28/18 08:00 09/28/18 08:00 09/28/18 08:00 09/28/18 08:00 09/28/18 08:00 <Merced Rubio - 09/28/18 11:36> Narrative: - Constitutional no acute distress - *Routine HEENT Exam Head: Present: normocephalic Eye: Present: EOMI, PERRL ENT: Present: mucous membranes dry - *Routine Neck Exam Present: supple. Absent: lymphadenopathy - *Routine Respiratory Exam Present: CTA bilaterally - *Routine Cardiovascular Exam Present: RRR - *Routine Abdominal Exam Present: soft, normoactive bowel sounds. Absent: tenderness - *Routine Extremities Exam Absent: cyanosis, clubbing, edema - *Routine Skin Exam Present: warm. Absent: rash - *Routine Neurological Exam Patient can move both arms but does have some spasticity, he will not move his legs. He is nonverbal but was able to give a "high 5" at the end of the exam <Merced Rubio - 09/28/18 11:36> Results Labs on day of discharge: Labs from last 24 hours 09/28/18 09/28/18 06:30 06:30 WBC 9.9 D RBC 4.89 Hgb 13.8 L Hct 41.8 L MCV 85.5 MCH 28.3 MCHC 33.1 RDW 13.2 Plt Count 379 MPV 7.3 L Neut % (Auto) 75.5 Lymph % (Auto) 17.9 [place] % (Auto) 5.9 Eos % (Auto) 0.4 Baso % (Auto) 0.2 Neut # (Auto) 7.5 Lymph # (Auto) 1.8 [place] # (Auto) 0.6 Eos # (Auto) 0.0 Baso # (Auto) 0.0 Sodium 139 Potassium 3.8 Chloride 109 H Carbon Dioxide 20 L D Anion Gap 13.8 BUN 11 D Creatinine 0.71 D Estimated Creat Clear 269 Estimated GFR 131 Est GFR ( Amer) 159 D Glucose 100 D Calcium 8.3 L <Duke Jurado - 09/28/18 13:04> Labs from last 24 hours 09/28/18 09/28/18 09/27/18 06:30 06:30 11:50 WBC 9.9 D RBC 4.89 Hgb 13.8 L Hct 41.8 L MCV 85.5 MCH 28.3 MCHC 33.1 RDW 13.2 Plt Count 379 MPV 7.3 L Neut % (Auto) 75.5 Lymph % (Auto) 17.9 [place] % (Auto) 5.9 Eos % (Auto) 0.4 Baso % (Auto) 0.2 Neut # (Auto) 7.5 Lymph # (Auto) 1.8 [place] # (Auto) 0.6 Eos # (Auto) 0.0 Baso # (Auto) 0.0 Sodium 139 Potassium 3.8 Chloride 109 H Carbon Dioxide 20 L D Anion Gap 13.8 BUN 11 D Creatinine 0.71 D Estimated Creat Clear 269 Estimated GFR 131 Est GFR ( Amer) 159 D Glucose 100 D Lactate 1.3 Calcium 8.3 L Total Bilirubin AST ALT Alkaline Phosphatase Total Protein Albumin Globulin Albumin/Globulin Ratio 09/27/18 09/27/18 11:50 11:50 WBC 7.8 RBC 5.42 Hgb 14.9 Hct 46.0 MCV 84.9 MCH 27.6 MCHC 32.5 RDW 13.3 Plt Count 415 MPV 7.0 L Neut % (Auto) 63.1 Lymph % (Auto) 26.7 [place] % (Auto) 6.3 Eos % (Auto) 2.8 Baso % (Auto) 1.0 Neut # (Auto) 5.0 Lymph # (Auto) 2.1 [place] # (Auto) 0.5 Eos # (Auto) 0.2 Baso # (Auto) 0.1 Sodium 140 Potassium 4.0 Chloride 107 Carbon Dioxide 26 Anion Gap 11.0 BUN 18 Creatinine 1.01 Estimated Creat Clear 180 Estimated GFR 87 Est GFR ( Amer) 106 Glucose 82 Lactate Calcium 8.6 Total Bilirubin 0.2 AST 37 ALT 145 H Alkaline Phosphatase 167 H Total Protein 7.7 Albumin 3.5 Globulin 4.2 H Albumin/Globulin Ratio 0.8 L <Merced Rubio - 09/28/18 11:36> DS: Diagnosis - Discharge Diagnosis (1) Poor fluid intake Status: Acute (2) Weakness Status: Acute (3) Autism Status: Chronic (4) Seizure disorder Status: Chronic (5) Elevated LFTs Status: Acute (6) Pharyngitis Status: Acute <Duke Jurado 09/28/18 13:04> (1) Poor fluid intake Status: Acute (2) Bacteremia due to Gram-positive bacteria Status: Acute (3) Weakness Status: Acute (4) Autism Status: Chronic (5) Seizure disorder Status: Chronic (6) Elevated LFTs Status: Acute (7) Bacteremia due to Staphylococcus epidermidis Status: Acute <Merced Rubio 09/28/18 11:33> Discharge Plan - Patient Discharge Instructions ACTIVITY: Continue current activity <Merced Rubio 09/28/18 11:36> DIET: continue same diet <Merced Rubio 09/28/18 11:36> Patient Instructions: DI for Dehydration -- Adult, DI for Pharyngitis/Tonsillopharyngitis -- Adult, DI for Muscle Weakness <Duke Jurado 09/28/18 13:04> Forms: <Duke Jurado 09/28/18 13:04> - Follow up Plan Follow up with: Toney Christopher [Primary Care Provider] - 1 week <Duke Jurado 09/28/18 13:04> Disposition: Home, Self-Care <Duke Jurado 09/28/18 13:04> Home Medications: Home Medications Medication Instructions Recorded Confirmed Type Clobazam [Onfi] 20 mg PO BID 09/25/18 09/27/18 History Montelukast Sodium [Singulair 10mg 10 mg PO PM 09/25/18 09/27/18 History tablet] Topiramate [Topamax 100mg tablet] 300 mg PO DAILY 09/25/18 09/27/18 History Topiramate [Topamax 100mg tablet] 500 mg PO HS 09/25/18 09/27/18 History Zonisamide [Zonegran] 150 mg PO BID 09/25/18 09/27/18 History levETIRAcetam [Keppra 500mg tablet] 2,000 mg PO BID 09/25/18 09/27/18 History raNITIdine HCl [Ranitidine HCl] 150 mg PO BID 09/27/18 09/27/18 History cephALEXin [Cephalexin 500mg Tab] 500 mg PO TID #9 tab 09/28/18 Rx dexAMETHasone [Dexamethasone] 2 mg PO BID #10 tab 09/28/18 Rx <Duke Jurado - 09/28/18 13:04> Prescriptions/Medication Reconciliation: New dexAMETHasone [Dexamethasone] 2 mg PO BID #10 tab cephALEXin [Cephalexin 500mg Tab] 500 mg PO TID #9 tab Continued levETIRAcetam [Keppra 500mg tablet] 2,000 mg PO BID Clobazam [Onfi] 20 mg PO BID Montelukast Sodium [Singulair 10mg tablet] 10 mg PO PM raNITIdine HCl [Ranitidine HCl] 150 mg PO BID Topiramate [Topamax 100mg tablet] 300 mg PO DAILY Topiramate [Topamax 100mg tablet] 500 mg PO HS Zonisamide [Zonegran] 150 mg PO BID <Duke Jurado - 09/28/18 13:04>
== END 2018-09-28 09:29 | disposition home or self-care (01) ==
LOC: ER 11:42 → 2ND 14:11 → INTOOBSV 14:11 → 2ND 14:31
PROVIDERS: ADMIT Family Medicine; ATTEND Family Medicine
CPT/HCPCS: 36415; 71010; 71045; 80048; 80053; 83605; 85025; 94640; 96365; 96366; 96367; 99283; G0378

== ENCOUNTER 2020-03-22 12:34 | Observation (INO) | payer BC, MEDICAID, SELFPAY ==
[2020-03-22] VITALS (9 sets, daily range): BP systolic 119–144; BP diastolic 74–96; PULSE 78–103; RESP 16–102; TEMP 36.6–37.3; O2SAT 95–98; BMI 44.4; BMI 45.8; BMI 40.6
[2020-03-22 12:59] LABS: Microscopic, Urine URINE MICROSCOPIC (MICROSCOPIC)
[2020-03-22 13:01] LABS: Appearance,Urine CLOUDY (Clear); Bilirubin,Urine Negative (Negative); Blood, Urine Negative (Negative); Chloride 112 mmol/L (98-107); Color,Urine YELLOW (Yellow); Glucose,Urine (UA) Negative (Negative); Ketones,Urine Negative (Negative); Leukocyte Esterase,Urine Negative (Negative); Nitrate,Urine Negative (Negative); PH,Urine 7.5 (5.0-8.5); Potassium 4.1 mmoL/L (3.5-5.1); Protein,Urine TRACE (Negative); Sodium 144 mmol/L (136-145); Urobilinogen,Urine 0.2 EU/dl (0.2)
[2020-03-22 13:04] LABS: Alanine Aminotransferase 43 U/L (12-78); Albumin Level 4.7 g/dl (3.5-5.0); Albumin/Globulin Ratio 1.3 (1.1-1.8); Alkaline Phosphatase 159 U/L (38-126); Anion Gap 16.1 mEq/L (5-15); Aspartate Amino Transferase 41 U/L (17-59); Basophils # 0.1 K/mm3 (0-0.2); Basophils % 0.5 % (0.1-2.0); Bilirubin,Total 0.4 mg/dl (0.2-1.3); Blood Urea Nitrogen 10 mg/dl (9-20); Carbon Dioxide 20 mmol/L (22.0-30.0); Creatinine Clearance Estimated 123 mL/min (50-200); Eosinophils # 0.1 K/mm3 (0.0-0.4); Eosinophils % 0.8 % (0.1-12.0); Estimated Glomerular Filt Rate 98 ml/min (>60); GFR (African American) 119 ML/MIN (>60); Globulin 3.7 g/dL (1.3-3.2); Hematocrit 50.5 % (42.0-52.0); Hemoglobin 16.2 g/dL (14.1-18.0); Lymphocytes # 1.5 K/mm3 (0.7-4.5); Mean Corpuscular Hemoglobin 27.3 pg (27.0-31.2); Mean Corpuscular Volume 85.2 fl (80-94); Mean Platelet Volume 8.1 fl (7.4-10.4); Monocytes # 0.9 K/mm3 (0.1-1.0); Monocytes % 5.5 % (1.7-9.3); Neutrophils # 14.2 K/mm3 (1.8-7.8); Neutrophils % 84.1 % (37.0-80.0); Platelet Count 442 K/mm3 (142-424); Red Blood Count 5.93 M/mm3 (4.60-6.20); Red Cell Distribution Width 13.8 % (11.5-17.5); Total Protein,Serum 8.4 g/dl (6.3-8.2); White Blood Count 16.9 K/mm3 (4.8-10.8)
[2020-03-22 13:05] LABS: Calcium 9.7 mg/dl (8.4-10.2); Glucose 116 mg/dl (74-100)
[2020-03-22 13:07] LABS: MANUAL DIFFERENTIAL MANUAL DIFFERENTIAL (MANUAL DIFF)
--- NOTE | 2020-03-22 13:10 | HMH.EDGENADL ---
ED Disposition Clinical Impression: Seizure disorder Pneumonia Qualifiers: Pneumonia type: aspiration pneumonia Laterality: left Lung location: lower lobe of lung Qualified Code(s): J18.9 - Pneumonia, unspecified organism Vomiting Qualifiers: Vomiting Intractability: unspecified Nausea presence: unspecified Disposition: Admitted as Observation Condition on Discharge: Fair - Critical Care Critical Care Time: No Attestation: On 03/22/20, the high probability of a clinically significant, sudden or life threatening deterioration of the following system(s) required my full and direct attention, intervention and personal management. The time I documented below is in addition to time spent performing reported procedures but includes the following listed in this critical care notation. Medical Decision Making - Medical Records Medical records reviewed: Yes: I reviewed the patient's medical records. - Edy Inquiry Pt receiving controlled substance: Yes Edy was queried for this patient: No Reason not queried -: Emergent pt cond-no time Risks and benefits of using a controlled substance: were not discussed with pt by me Vital Signs: 03/22/20 12:35 03/22/20 13:05 03/22/20 13:35 Temperature 98.9 F Temperature Source Rectal Pulse Rate Pulse Rate [Radial] 101 H 82 93 H Respiratory Rate 30 H 22 24 Blood Pressure Blood Pressure [Right Arm] 139/93 H 119/96 H 140/88 Blood Pressure Mean [Right Arm] 108 103 105 Blood Pressure Source [Right Arm] Automatic Cuff Automatic Cuff Blood Pressure Position Blood Pressure Position [Right Arm] Sitting Supine Supine 02 Sat by Pulse Oximetry 98 96 96 Oxygen Delivery Method Room Air Room Air Room Air 03/22/20 14:13 03/22/20 16:06 Temperature 98 F Temperature Source Oral Pulse Rate 78 Pulse Rate [Radial] 92 H Respiratory Rate 20 16 Blood Pressure 129/74 Blood Pressure [Right Arm] 120/87 Blood Pressure Mean [Right Arm] 98 Blood Pressure Source [Right Arm] Automatic Cuff Blood Pressure Position Sitting Blood Pressure Position [Right Arm] Supine 02 Sat by Pulse Oximetry 97 Oxygen Delivery Method Room Air Room Air - Lab Data Lab results reviewed: Yes: I reviewed the patient's lab results. Lab Results 03/22/20 12:47: WBC 16.9 H, RBC 5.93, Hgb 16.2, Hct 50.5, MCV 85.2, MCH 27.3, MCHC 32.0, RDW 13.8, Plt Count 442 H, MPV 8.1, Neut % (Auto) 84.1 H, Lymph % (Auto) 9.0 L, [place] % (Auto) 5.5, Eos % (Auto) 0.8, Baso % (Auto) 0.5, Neut # (Auto) 14.2 H, Lymph # (Auto) 1.5, [place] # (Auto) 0.9, Eos # (Auto) 0.1, Baso # (Auto) 0.1, Total Counted 100, Neutrophils % (Manual) 76, Lymphocytes % (Manual) 20, Monocytes % (Manual) 2, Eosinophils % (Manual) 2, Platelet Estimate Normal, RBC Morphology Normal 03/22/20 12:47: Sodium 144, Potassium 4.1, Chloride 112 H, Carbon Dioxide 20 L, Anion Gap 16.1 H, BUN 10, Creatinine 0.90, Estimated Creat Clear 123, Estimated GFR 98, Est GFR ( Amer) 119, Glucose 116 H, Calcium 9.7, Total Bilirubin 0.4, AST 41, ALT 43, Alkaline Phosphatase 159 H, Total Protein 8.4 H, Albumin 4.7, Globulin 3.7 H, Albumin/Globulin Ratio 1.3 03/22/20 12:47: Lactate 2.1 03/22/20 12:47: Procalcitonin 0.056 03/22/20 12:47: Urine Color Yellow, Urine Appearance Cloudy, Urine pH 7.5, Ur Specific [place] 1.020, Urine Protein Trace, Urine Glucose (UA) Negative, Urine Ketones Negative, Urine Blood Negative, Urine Nitrate Negative, Urine Bilirubin Negative, Urine Urobilinogen 0.2, Ur Leukocyte Esterase Negative, Urine RBC None, Urine WBC Occasional, Ur Squamous Epith Cells Occasional, Amorphous Sediment 2+, Urine Bacteria 1+, Urine Mucus 1+, Urine Yeast 4+ 03/22/20 13:50: Chlamy pneumoniae PCR Not detected, Adenovirus (PCR) Not detected, B. pertussis DNA (PCR) Not detected, Coronavirus OC43 (PCR) Not detected, Coronavirus HKU1 (PCR) Not detected, Coronavirus 229E (PCR) Not detected, SARS-CoV-2 (PCR) Not detected, Coronavirus NL63 (PCR) Not detected, Human Metapneumovir PCR
[2020-03-22 13:16] LABS: Lactic Acid 2.1 mmol/L (0.7-2.1)
[2020-03-22 13:18] LABS: Amorphous Sediment,Urine 2+ /lpf; Bacteria,Urine 1+ /lpf; Mucus,Urine 1+ /lpf; Squamous Epithelial Cell,Urine Occasional #/hpf (0-5); WBC,Urine Occasional #/hpf (0-3); Yeast,Urine 4+ /lpf
[2020-03-22 13:24] LABS: Eosinophils % 2 % (0-3); Lymphocytes % 20 % (10-50); Monocytes % 2 % (2-9); Neutrophils % 76 % (42-76); Platelet Estimate Normal; RBC Morphology Normal; Total Cells Counted 100
[2020-03-22 13:25] LABS: Procalcitonin 0.056 ng/mL (0.0-2.0)
--- NOTE | 2020-03-22 13:30 | XR_ITS ---
PROCEDURE: XR CHEST PORTABLE Referring Doctor: Cody Juares Patient Age:30Y CLINICAL HISTORY: fever, large patient has vaso vagal stimulator ON LEFT COMPARISON: CR CXR from 09/25/2018 FINDINGS: ap Semi-erect Portable Cxr. Poor Inspiration. Low Lung Volume With Diaphragm Only Down To The Anterior 3rd Rib On Right 4th Rib On Left.. the technologist states these were the best images possible patient could not lift up chin. Today's Study Is Compared To 09/25/2018 Cxr And Overall There Is Very Similar Appearance With Prominence Of Central, Perihilar Markings. Most Of This Is Due To The Poor Inspiration Which Crowds Markings And Limits The Study. But The Perihilar Infiltrate And Overall Appearance Does Raise Concern For Possible Chf Particularly In View Of The Enlarged Heart/cardiomegaly (which Is Also Accentuated By Projection). Again Note There A Neurostimulator Device Overlying The Left Chest-this Partially Obscures Left Lower Lobe.. Actually Left Lung Is Better Inflated Today Than August 2018 Exam.. The Elevation Right Hemidiaphragm Was Seen Previously. Actually The Lungs Are overall very slightly Better Expanded Than August 2018 IMPRESSION: Limited Exam With Poor Inspiration. . Elevated Right Hemidiaphragm Of Again Noted . Prominence Of Central Markings & Perihilar Infiltrate -This Overall Appearance Along With Cardiomegaly Raises Possibility Regarding Underlying Chf -. All The Above Features May Be Exaggerated By The Poor Inspiratory Effort Dictated by: Alex Mazariegos MD 03/22/2020 17:30 Alex Mazariegos MD in [place] 03/22/2020 17:30
--- NOTE | 2020-03-22 13:30 | PC.NURSE ---
SEIZURE PADS APPLIED TO BEDRAILS
[2020-03-22 14:15] LABS: Strep Scrn Group A (Rapid) Negative (Negative)
[2020-03-22 14:15] LABS: Adenovirus,PCR Not Detected (NotDetected); Bordetella Pertussis Not Detected (NotDetected); Chlamydophila Pneumoniae, PCR Not Detected (NotDetected); Coronavirus 19, PCR Not Detected (NotDetected); Coronavirus 229E Not Detected (NotDetected); Coronavirus NL63 Not Detected (NotDetected); Coronavirus OC43 Not Detected (NotDetected); Coronovirus HKU1,PCR Not Detected (NotDetected); Human Metapneumovirus Not Detected (NotDetected); Influenza A, PCR Not Detected (NotDetected); Influenza AH1, 2009 Not Detected (NotDetected); Influenza AH1, PCR Not Detected (NotDetected); Influenza AH3,PCR Not Detected (NotDetected); Influenza B, PCR Not Detected (NotDetected); Mycoplasma Pneumoniae, PCR Not Detected (NotDetected); Parainfluenza 1, PCR Not Detected (NotDetected); Parainfluenza 2, PCR Not Detected (NotDetected); Parainfluenza 3, PCR Not Detected (NotDetected); Parainfluenza 4, PCR Not Detected (NotDetected); Respiratory Syncytial Virus Not Detected (NotDetected); Rhinovirus/Enterovirus Not Detected (NotDetected)
[2020-03-22 14:31] LABS: Coronavirus 19 IgG Antibody Negative (Negative); Coronavirus 19 IgM Antibody Negative (Negative)
--- NOTE | 2020-03-22 14:38 | PC.NURSE ---
Called hospital housekeeper for admission
--- NOTE | 2020-03-22 15:50 | PC.NURSE ---
REPORT TO FLOOR
--- NOTE | 2020-03-22 16:46 | HMH.HP ---
*Admission Date: 03/22/20 *Chief complaint: Acute febrile illness, seizure disorder exacerbation *History of present illness: 30-year-old white male who is afflicted with severe autism and seizure disorder, who over the past 2 years has been nonambulatory after a leg fracture, was brought to the emergency department because of increased seizure frequency and fevers over the past 48 hours. He was prescribed levofloxacin 3 or 4 days ago by his primary physician, Dr. Christopher in [place], for what sounds like sinus type symptoms, he obviously has lowered seizure threshold with fever and this was the impetus for aggressive antibiotic prescribing. Unfortunately over the past couple of days he has increased his seizure frequency and has been vomiting. He has been unable to keep food or fluids down and missed his antiepileptic dosing yesterday and this morning. In the emergency department work-up revealed possible lung infiltrate, laboratory studies were noted, and he was admitted to hospital for IV fluids, IV Ativan as needed, and intravenous antibiotic therapy for febrile illness with failed outpatient therapy. Of note viral PCR panel for coronavirus 19 and influenza studies and the other items on our viral PCR panel are negative. [facility] History I have reviewed the patient's past medical history: Yes Medical History: Reports:: Gastroesophageal Reflux Disease(GERD), Seizures Denies:: Diabetes Mellitus Type 1, Diabetes Mellitus Type 2, MRSA *Have you ever received a pneumonia vaccine?: No *Have you received a flu vaccine this season?: Yes Other Medical History: Reports: Anemia, Other (Mental retardation, Autism) Comment:: Follows with [facility] neurology group. Had been working with home health until the coronavirus pandemic and now the [facility] has not been doing any PT or OT with this patient Other Surgeries: Yes: EGD, Other (brain surgery age 2, Jtube placement) - *Social History Alcohol Intake: never *Occupational Status:: disabled Household Members: family *Travel in the last 8 weeks: None Comment: Lives at home with his mother. Mother has respite care 1 day a week through the [facility]. Older sister is a nurse and is involved with his care as well. Mother has declined adult daycare services because he will not eat for anybody but me and he has a low immune system. Family Hx:: Cancer, Diabetes, Heart Attack, Hypertension Review of Systems - Review of Systems Review of systems:: unable to obtain Meds Home Medications Medication Instructions Recorded Confirmed Type Montelukast Sodium [Singulair 10mg 10 mg PO PM 09/25/18 03/22/20 History tablet] Topiramate [Topamax 100mg tablet] 300 mg PO DAILY 09/25/18 03/22/20 History Topiramate [Topamax 100mg tablet] 500 mg PO HS 09/25/18 03/22/20 History Zonisamide [Zonegran] 150 mg PO BID 09/25/18 03/22/20 History cloBAZam [Onfi] 20 mg PO BID 09/25/18 03/22/20 History levETIRAcetam [Keppra 500mg tablet] 2,000 mg PO BID 09/25/18 03/22/20 History Famotidine [Pepcid] 20 mg PO DAILY 03/22/20 03/22/20 History Allergies Allergy/AdvReac Type Severity Reaction Status Date / Time carbamazepine [From TEGRETOL] Allergy Mild Verified 09/25/18 17:49 Exam Vital signs and Labs for Last 24 Hours: Temp Pulse Resp BP Pulse Ox 98.6 F 90 24 144/96 H 96 03/22/20 16:08 03/22/20 16:08 03/22/20 16:08 03/22/20 16:08 03/22/20 16:08 Laboratory Results - last 24 hr 03/22/20 12:47: WBC 16.9 H, RBC 5.93, Hgb 16.2, Hct 50.5, MCV 85.2, MCH 27.3, MCHC 32.0, RDW 13.8, Plt Count 442 H, MPV 8.1, Neut % (Auto) 84.1 H, Lymph % (Auto) 9.0 L, [place] % (Auto) 5.5, Eos % (Auto) 0.8, Baso % (Auto) 0.5, Neut # (Auto) 14.2 H, Lymph # (Auto) 1.5, [place] # (Auto) 0.9, Eos # (Auto) 0.1, Baso # (Auto) 0.1, Total Counted 100, Neutrophils % (Manual) 76, Lymphocytes % (Manual) 20, Monocytes % (Manual) 2, Eosinophils % (Manual) 2, Platelet Estimate Normal, RBC Morphology Normal
--- NOTE | 2020-03-22 16:53 | PC.NURSE ---
pt admitted to the floor via stretcher @ [address] Chicas rounded. He will enter order for Probiotic and AM labs. Pt currently has [facility] home health in [email or web address]. Pt's mom explains that [facility] refuses to make home visits during COVID-[address] Chicas to inquire switching agencies to [facility]. Pt is eating and drinking. Is nonverbal secondary to Autism and long hx of seizure disorder. I hung Levaquin 750mg/150mL during my shift. NS infusing @ 75ml/hr via left AC PIV. Pt is eating and drinking. 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 Pills put in spoonful of applesauce for pt to take. Seizure pads on bed. Mom to remain @ BS.
[2020-03-22 16:55] LABS: Reflex Lactic Add Lactic Reflex
[2020-03-22 17:58] LABS: Lactic Acid Follow Up (RFLX 1) 1.7 mmol/L (0.7-2.1)
--- NOTE | 2020-03-22 21:52 | P.CONPHA_ITS ---
[facility] VTE Monitoring - Patient Demographics Admission date: 03/22/20 Report Date: 03/22/20 Time: 21:52 Allergies/Adverse Reactions: Patient Allergies carbamazepine [From TEGRETOL] Allergy (Mild, Verified 09/25/18 17:49) Height: 1.75 m Weight: 124.738 kg Patient Problems: Current Active Problems Poor fluid intake (Acute) Autism (Chronic) Seizure disorder (Chronic) Pneumonia (Acute) Vomiting (Acute) Bedbound (Acute) BMI greater than 40 (Acute) - VTE Risk Labs: VTE Related Lab Results Hgb 16.2 g/dL (14.1-18.0) 03/22/20 12:47 Hct 50.5 % (42.0-52.0) 03/22/20 12:47 Plt Count 442 K/mm3 (142-424) H 03/22/20 12:47 BUN 10 mg/dl (9-20) 03/22/20 12:47 Creatinine 0.90 mg/dl (0.66-1.25) 03/22/20 12:47 Estimated Creat Clear 123 mL/min (50-200) 03/22/20 12:47 Was VTE Risk Assessment Performed: Yes VTE Score: 4 VTE Risk Level: Low Risk - Prophylaxis Types of VTE Prophylaxis: TEDS Knee High (FADIA HOSE ORDERED)
[2020-03-23] VITALS: BP 113/74; PULSE 90; PULSE 99; RESP 17; TEMP 36.9; O2SAT 97
--- NOTE | 2020-03-23 01:26 | PC.NURSE ---
Pt resting in bed at this time. Mother at bedside. MD contacted for request by mother for enema. Mother stated that pt can only have BM per enema and needs one every 3 days. Mother stated this was his fourth day of not having one. MD ordered fleets enema. Order carried out. Pharmacy was contacted due to pt mother stating that he could only take Keppra brand and not generic brand or he would have a seizure. Pt also on medications that were not available at facility that pt needed per mother. Pharmacy came. Home medications administered per jun/order. Mother also verified that pt does take 100 mg AND 50 MG ZONISAMIDE, 150 mg total BID. Pt had large BM. No seizure activity. No other concerns at this time. Will continue to monitor.
[2020-03-23 04:00] VITALS: BP 103/66; PULSE 90; PULSE 97; RESP 20; TEMP 37.4; O2SAT 95
[2020-03-23 05:00] VITALS: BMI 40.7
[2020-03-23 06:30] LABS: Basophils # 0.1 K/mm3 (0-0.2); Basophils % 0.6 % (0.1-2.0); Eosinophils # 0.2 K/mm3 (0.0-0.4); Eosinophils % 1.3 % (0.1-12.0); Hemoglobin 15.4 g/dL (14.1-18.0); Lymphocytes # 2.3 K/mm3 (0.7-4.5); Lymphocytes % 19.5 % (10-50); Mean Corpuscular HGB Conc 32.7 g/dL (31.8-35.4); Mean Corpuscular Hemoglobin 27.5 pg (27.0-31.2); Mean Corpuscular Volume 83.9 fl (80-94); Mean Platelet Volume 8.2 fl (7.4-10.4); Monocytes % 8.4 % (1.7-9.3); Neutrophils # 8.1 K/mm3 (1.8-7.8); Neutrophils % 70.2 % (37.0-80.0); Platelet Count 384 K/mm3 (142-424); Red Cell Distribution Width 13.9 % (11.5-17.5); White Blood Count 11.5 K/mm3 (4.8-10.8)
[2020-03-23 06:40] LABS: Chloride 114 mmol/L (98-107); Potassium 3.8 mmoL/L (3.5-5.1); Sodium 142 mmol/L (136-145)
[2020-03-23 06:43] LABS: Anion Gap 11.8 mEq/L (5-15); Blood Urea Nitrogen 8 mg/dl (9-20); Calcium 8.9 mg/dl (8.4-10.2); Carbon Dioxide 20 mmol/L (22.0-30.0); Creatinine Clearance Estimated 129 mL/min (50-200); Estimated Glomerular Filt Rate 113 ml/min (>60); GFR (African American) 136 ML/MIN (>60); Glucose 91 mg/dl (74-100)
[2020-03-23 08:00] VITALS: BP 123/84; PULSE 98; RESP 18; TEMP 36.5; O2SAT 97
--- NOTE | 2020-03-23 08:25 | HMH.DCSUM ---
General - General Admission date:: 03/22/20 Discharge date: 03/23/20 HPI HPI: 30-year-old white male who is afflicted with severe autism and seizure disorder, who over the past 2 years has been nonambulatory after a leg fracture, was brought to the emergency department because of increased seizure frequency and fevers over the past 48 hours. He was prescribed levofloxacin 3 or 4 days ago by his primary physician, Dr. Christopher in [place], for what sounds like sinus type symptoms, he obviously has lowered seizure threshold with fever and this was the impetus for aggressive antibiotic prescribing. Unfortunately over the past couple of days he has increased his seizure frequency and has been vomiting. He has been unable to keep food or fluids down and missed his antiepileptic dosing yesterday and this morning. In the emergency department work-up revealed possible lung infiltrate, laboratory studies were noted, and he was admitted to hospital for IV fluids, IV Ativan as needed, and intravenous antibiotic therapy for febrile illness with failed outpatient therapy. Of note viral PCR panel for coronavirus 19 and influenza studies and the other items on our viral PCR panel are negative. Hospital Course Hospital Course: Patient did well overnight. He had no further fever, he had no further seizures, this morning he was alert, pleasant. Interactive. Eating well, and mother wished to be discharged home. I agree with this. Given high risk of aspiration we discussed using clindamycin and Levaquin for 1 more week, along with a probiotic this would be prescribed. They will follow up with regular physician in a week. I recommended trying a different home health agency to improve his ambulatory status to avoid further risk of aspiration and chronic bedbound status. Objective Vital signs: Temp Pulse Resp BP Pulse Ox 99.3 F 97 H 20 103/66 L 95 03/23/20 04:00 03/23/20 04:00 03/23/20 04:00 03/23/20 04:00 03/23/20 04:00 no acute distress, morbidly obese Comments: Poor eye contact, smiles, does not respond to commands, nonverbal - *Routine HEENT Exam Head: Present: normocephalic Eye: Present: EOMI, PERRL ENT: Present: mucous membranes moist - *Routine Neck Exam Present: supple - *Routine Respiratory Exam Present: CTA bilaterally - *Routine Cardiovascular Exam Present: RRR - *Routine Abdominal Exam Present: soft, normoactive bowel sounds. Absent: tenderness - *Routine Extremities Exam Absent: cyanosis, clubbing, edema Comments: Atrophy in calves and foot muscles. - *Routine Skin Exam Present: warm. Absent: rash - Detailed Eye Exam Eyelids: Bilateral normal inspection Results Labs on day of discharge: Labs from last 24 hours 03/23/20 03/23/20 03/22/20 06:20 06:20 17:35 WBC 11.5 H D RBC 5.60 Hgb 15.4 Hct 47.0 MCV 83.9 MCH 27.5 MCHC 32.7 RDW 13.9 Plt Count 384 MPV 8.2 Neut % (Auto) 70.2 Lymph % (Auto) 19.5 [place] % (Auto) 8.4 Eos % (Auto) 1.3 Baso % (Auto) 0.6 Neut # (Auto) 8.1 H Lymph # (Auto) 2.3 [place] # (Auto) 1.0 Eos # (Auto) 0.2 Baso # (Auto) 0.1 Total Counted Neutrophils % (Manual) Lymphocytes % (Manual) Monocytes % (Manual) Eosinophils % (Manual) Platelet Estimate RBC Morphology Sodium 142 Potassium 3.8 Chloride 114 H Carbon Dioxide 20 L Anion Gap 11.8 BUN 8 L Creatinine 0.80 Estimated Creat Clear 129 Estimated GFR 113 Est GFR ( Amer) 136 Glucose 91 D Lactate 1.7 Calcium 8.9 Total Bilirubin AST ALT Alkaline Phosphatase Total Protein Albumin Globulin Albumin/Globulin Ratio Procalcitonin Urine Color Urine Appearance Urine pH Ur Specific [place] Urine Protein Urine Glucose (UA) Urine Ketones Urine Blood Urine Nitrate Urine Bilirubin Urine Urobilinogen Ur Leuk
== END 2020-03-23 11:07 | disposition home health service (06) ==
LOC: ER 14:35 → 2ND 16:30
PROVIDERS: Admitting Provider Internal Medicine Adolescent Medicine; Emergency Provider Emergency Medicine; PCP Family Medicine; Visit Provider Internal Medicine Adolescent Medicine
DX: J18.9 Pneumonia, unspecified organism (principal); Z74.01 Bed confinement status; E66.09 Other obesity due to excess calories; Z68.41 Body mass index [BMI] 40.0-44.9, adult; D64.9 Anemia, unspecified; R11.10 Vomiting, unspecified; F84.0 Autistic disorder
CPT/HCPCS: 36415; 71045; 80048; 80053; 80177; 81001; 83605; 84145; 85007; 85025; 86328; 87040; 87275; 87276; 87430; 87581; 87633; 87798; 96365; 96366; 96375; 99285; G0378; J1956; J2405

== ENCOUNTER 2022-02-25 00:27 | Inpatient (IN) | payer BC, MEDICAID, SELFPAY ==
[2022-02-25] VITALS (13 sets, daily range): BP systolic 125–152; BP diastolic 72–101; PULSE 96–121; RESP 18–28; TEMP 36.8–38.4; O2SAT 94–98; BMI 39.4; BMI 39.2; BMI 39.1
--- NOTE | 2022-02-25 00:25 | ECG_ITS ---
APPROVED REPORT Exam: Resting ECG HR:122 bpm ECG Measurements Heart Rate 122 AXES MA 159 P 42 QRSd 99 QRS 61 QT 338 T 38 QTc 410 Conclusion SINUS TACHYCARDIA LOW QRS VOLTAGE IN PRECORDIAL LEADS [QRS DEFLECTION < 1.0 mV IN CHEST LEADS] POSSIBLE RIGHT VENTRICULAR CONDUCTION DELAY [RSR (QR) IN V1/V2] NONSPECIFIC ST & T-WAVE ABNORMALITY ABNORMAL RHYTHM ECG UNCONFIRMED REPORT Electronically signed by : Shiva Chicas MD 02/27/2022 21:22:03
[2022-02-25 00:43] LABS: ABG Base Excess -4.4 mmol/L (-2.4-2.3); ABG HCO3 20.5 mmhg (22.0-26.0); ABG Oxygen Saturation 95 % (90-100); ABG PCO2 34.8 mmhg (35.0-45.0); ABG PH 7.39 mmol/L (7.35-7.45); ABG PO2 76.1 mmhg (80-100); ABG TCO2 21.6 mmhg (23-27)
[2022-02-25 00:44] LABS: Allen's Test Patient Unable; Oxygen 3LPM %; Source Right Radial
--- NOTE | 2022-02-25 00:48 | XR_ITS ---
PROCEDURE INFORMATION: Exam: XR Chest Exam date and time: 02/25/2022 1:13 AM Age: 31 years old Clinical indication: Shortness of breath; Prior surgery; Additional info: SOA TECHNIQUE: Imaging protocol: Radiologic exam of the chest. Views: 1 view. COMPARISON: CR XR CHEST PORTABLE 03/22/2020 1:34 PM FINDINGS: Tubes, catheters and devices: Device overlying LEFT hemithorax. Lungs: Moderate to severe underinflation. Mild patchy opacity RIGHT lung base. Pleural spaces: No definite pleural effusion. No pneumothorax. Heart/Mediastinum: No cardiomegaly. Prominence of central pulmonary vasculature. Diaphragm: Elevated RIGHT hemidiaphragm. Bones/joints: No displaced fracture. Soft tissues: Unremarkable. IMPRESSION: 1. Vascular crowding vs mild pulmonary vascular congestion. Correlate clinically. 2. RIGHT basilar atelectasis/scarring and/or pneumonia. Radiographic follow-up is recommended.
--- NOTE | 2022-02-25 00:55 | HMH.EDSOB ---
Discharge Plan Disposition Patient Disposition: Admitted As Inpatient Chief Complaint: Shortness of Breath/Dyspnea Prescriptions Prescriptions: No Action famotidine 20 MG tablet 20 mg PO DAILY zonisamide 100 MG capsule 100 mg PO BID zonisamide 50 MG capsule 50 mg PO BID L.acid,para-B.bifidum-S.therm 1 CAP capsule 1 cap PO DAILY 90 Days Qty: 90 3RF levofloxacin 500 MG tablet 500 mg PO DAILY Qty: 7 0RF clindamycin HCl 300 MG capsule 300 mg PO TID Qty: 21 0RF topiramate 100 MG tablet 300 mg PO DAILY topiramate 100 MG tablet 500 mg PO HS levetiracetam 500 MG tablet 2,000 mg PO BID Rx Instructions: BRAND ONLY clobazam 20 MG tablet 20 mg PO BID montelukast 10 MG tablet 10 mg PO PM Referrals Follow up/Referrals: Toney Christopher [Primary Care Provider] - See instructions Clinical Impressions Clinical Impression: CAP (community acquired pneumonia), SIRS (systemic inflammatory response syndrome), Seizure disorder Discharge ED Provider: Benjamin Moseley Resp/SOB HPI General Chief Complaint: Shortness of Breath/Dyspnea Stated Complaint: Pain Time Seen by Provider: 02/25/22 00:55 Mode of Arrival: EMS Source of Information: Patient, Parent(s), EMS and Medical Record Limitations: Altered Mental Status Description of Symptoms (Recalled from ER Triage Doc. by RN): Mother reports pt was baseline until 10:30pm after she gave him his night meds in [facility]. Pt is non-verbal and mentally disabled. Pt has had increased WOB and repeats ouch . He appears dusky on arrival. O2 sats per EMS were 93% on RA. History of Present Illness congested with altered mental status with needing o2 MD Complaint: shortness of breath Onset (ago): hour(s) Severity: moderate Known history of: aspiration pneumonia Associated symptoms: denies other symptoms Treatment prior to arrival: oxygen Related Data Home oxygen amount: none Home Medications Medication Instructions Recorded Confirmed clobazam 20 mg tablet 20 mg PO BID seizures 09/25/18 03/22/20 levetiracetam 500 mg tablet 2,000 mg PO BID Seizures 09/25/18 03/22/20 montelukast 10 mg tablet 10 mg PO PM Breathing problems 09/25/18 03/22/20 topiramate 100 mg tablet 300 mg PO DAILY Seizures 09/25/18 03/22/20 topiramate 100 mg tablet 500 mg PO HS Seizures 09/25/18 03/22/20 famotidine 20 mg tablet 20 mg PO DAILY GERD 03/22/20 03/22/20 zonisamide 100 mg capsule 100 mg PO BID SEIZURES 03/22/20 03/22/20 zonisamide 50 mg capsule 50 mg PO BID SEIZURES 03/22/20 03/22/20 Previous Rx's Medication Instructions Recorded L.acidophilus-L.paracasei-B.bifidum-S.thermophl 1 cap PO DAILY 90 days #90 caps 03/23/20 8 billion cell capsule clindamycin HCl 300 mg capsule 300 mg PO TID #21 caps 03/23/20 levofloxacin 500 mg tablet 500 mg PO DAILY #7 tabs 03/23/20 Allergies Allergy/AdvReac Type Severity Reaction Status Date / Time carbamazepine [From TEGRETOL] Allergy Mild Verified 09/25/18 17:49 PFSH PFSH Social History Smoking Status: Never smoker alcohol intake: never current occupational status: disabled Travel in the last 8 weeks: None household members: family ROS Obtained: Yes unobtainable due to mental status Physical Exam General General appearance: alert and lethargic Head Head exam: normocephalic Eye Eye exam: Present PERRL and EOMI ENT ENT exam: Present mucous membranes dry Neck Neck exam: Present trachea midline Respiratory Respiratory exam: Present other (dec bs bilat ); Absent respiratory distress Cardiovascular Cardiovascular exam: Present tachycardia and systolic murmur Abdominal Exam Abdominal exam: Present soft Extremities Exam Extremities exam: Absent tenderness Neurological Exam Neurological exam: Present alert and CN II-XII intact Skin Skin exam: Absent rash Medical Decision Making Medical Records Medical records reviewed: Yes I reviewed the patient's medical records. Jimenez
[2022-02-25 00:57] LABS: Basophils # 0.2 K/mm3 (0-0.2); Basophils % 0.8 % (0.1-2.0); Eosinophils # 0.2 K/mm3 (0.0-0.4); Eosinophils % 1.1 % (0.1-12.0); Hematocrit 47.7 % (42.0-52.0); Hemoglobin 15.1 g/dL (14.1-18.0); Lymphocytes # 1.6 K/mm3 (0.7-4.5); Lymphocytes % 8.4 % (10-50); Mean Corpuscular HGB Conc 31.5 g/dL (31.8-35.4); Mean Corpuscular Hemoglobin 25.8 pg (27.0-31.2); Mean Corpuscular Volume 81.9 fl (80-94); Mean Platelet Volume 8.1 fl (7.4-10.4); Monocytes # 0.9 K/mm3 (0.1-1.0); Monocytes % 4.5 % (1.7-9.3); Neutrophils # 16.6 K/mm3 (1.8-7.8); Neutrophils % 85.3 % (37.0-80.0); Platelet Count 528 K/mm3 (142-424); Red Blood Count 5.83 M/mm3 (4.60-6.20); Red Cell Distribution Width 14.3 % (11.5-17.5); White Blood Count 19.4 K/mm3 (4.8-10.8)
--- NOTE | 2022-02-25 01:06 | PC.NURSE ---
RAD at for CXR
[2022-02-25 01:08] LABS: Appearance,Urine CLEAR (Clear); Bilirubin,Urine Negative (Negative); Blood, Urine Negative (Negative); Color,Urine YELLOW (Yellow); Glucose,Urine (UA) Negative (Negative); Ketones,Urine Negative (Negative); Leukocyte Esterase,Urine Negative (Negative); Microscopic, Urine URINE MICROSCOPIC (MICROSCOPIC); Nitrate,Urine Negative (Negative); PH,Urine 6.5 (5.0-8.5); Protein,Urine Negative (Negative); Urobilinogen,Urine 0.2 EU/dl (0.2)
[2022-02-25 01:14] LABS: MANUAL DIFFERENTIAL MANUAL DIFFERENTIAL (MANUAL DIFF)
[2022-02-25 01:24] LABS: Alanine Aminotransferase 35 U/L (12-78); Albumin Level 4.5 g/dl (3.5-5.0); Albumin/Globulin Ratio 1.1 (1.1-1.8); Alkaline Phosphatase 182 U/L (38-126); Anion Gap 20.2 mEq/L (5-15); Aspartate Amino Transferase 26 U/L (17-59); Blood Urea Nitrogen 8 mg/dl (9-20); Calcium 8.9 mg/dl (8.4-10.2); Carbon Dioxide 25 mmol/L (22.0-30.0); Chloride 104 mmol/L (98-107); Creatinine Clearance Estimated 208 mL/min (50-200); Estimated Glomerular Filt Rate 98 ml/min (>60); GFR (African American) 118 ML/MIN (>60); Glucose 158 mg/dl (74-100); Potassium 4.2 mmoL/L (3.5-5.1); Sodium 145 mmol/L (136-145); Total Protein,Serum 8.5 g/dl (6.3-8.2)
[2022-02-25 01:25] LABS: Lactic Acid 1.1 mmol/L (0.7-2.1)
[2022-02-25 01:26] LABS: Bilirubin,Total 0.1 mg/dl (0.2-1.3)
[2022-02-25 01:51] LABS: Bacteria,Urine Trace /lpf; Hyaline Casts,Urine Occasional #/lpf (0); RBC,Urine Occasional #/hpf (0-3); WBC,Urine Occasional #/hpf (0-3)
[2022-02-25 02:07] LABS: C-Reactive Protein 56.5 mg/L (0-4)
[2022-02-25 02:10] LABS: Coronavirus 19, PCR Not Detected (NotDetected); Influenza A, PCR Not Detected (NotDetected); Influenza B, PCR Not Detected (NotDetected)
[2022-02-25 02:17] LABS: Erythrocyte Sedimentation Rate 9 mm/hr (0-15)
--- NOTE | 2022-02-25 02:19 | EXP.HP ---
History of Present Illness *Admission Date: 02/25/22 *Reason for visit:: Difficulty breathing *History of present illness: Mr. Overton is a 31-year-old male cared for in his home by his mother, non-verbal, bed bound status with a reported history of Autism, Seizure disorder, Gastroparesis and Osteoporosis. He presented to [facility] today, 02/25/2022 due to concerns over his breathing and not appearing his normal self. The patient was seen on admission in the ER. Mother was at bedside and gave the information for the history and physical. She reports that this evening the patient was not acting his normal self. She reported that it seemed that he was having difficulty breathing, she reports that she gave the patient some ibuprofen and his symptoms continued so she brought him into the ER for evaluation. In the ER, the patient was noted to be febrile with a temperature of 101.1, HR 121, WBC was 19.4, Cxray was concerning for a right basilar consolidation. The patient will be admitted with initial impression of Sepsis with a concern for possible Aspiration Pneumonia. The mother reports that the patient appears to be choking with thin liquids. Cultures were drawn in the ER prior to antibiotic administration. Speech will be consulted to see the patient. The plan of care was discussed with the mother at bedside prior to the patient's admission. The mother verbalized understanding and agreement with the plan of care. [facility] Medical History (Updated 02/25/22 @ 02:29 by Jose Maria Jeffery DNP) Autism Gastroparesis History of jejunostomy tube placement Osteoporosis Seizure disorder Surgical History (Updated 02/25/22 @ 02:27 by Jose Maria Jeffery DNP) H/O brain surgery Family History (Updated 02/25/22 @ 02:27 by Jose Maria Jeffery DNP) Other Family history non-contributory Social History Smoking Status: Never smoker alcohol intake: never current occupational status: disabled Travel in the last 8 weeks: None household members: family Review of Systems Review of Systems Review of systems:: unable to obtain Meds Home Medications and Allergies Home Medications Medication Instructions Recorded Confirmed Type clobazam 20 mg tablet 20 mg PO BID seizures 09/25/18 03/22/20 History levetiracetam 500 mg tablet 2,000 mg PO BID Seizures 09/25/18 03/22/20 History montelukast 10 mg tablet 10 mg PO PM Breathing problems 09/25/18 03/22/20 History topiramate 100 mg tablet 300 mg PO DAILY Seizures 09/25/18 03/22/20 History topiramate 100 mg tablet 500 mg PO HS Seizures 09/25/18 03/22/20 History famotidine 20 mg tablet 20 mg PO DAILY GERD 03/22/20 03/22/20 History zonisamide 100 mg capsule 100 mg PO BID SEIZURES 03/22/20 03/22/20 History zonisamide 50 mg capsule 50 mg PO BID SEIZURES 03/22/20 03/22/20 History L.acidophilus-L.paracasei-B.bifidum-S.thermophl 1 cap PO DAILY 90 days #90 caps 03/23/20 Rx 8 billion cell capsule clindamycin HCl 300 mg capsule 300 mg PO TID #21 caps 03/23/20 Rx levofloxacin 500 mg tablet 500 mg PO DAILY #7 tabs 03/23/20 Rx New Prescriptions to Start Prescriptions: Allergies Allergy/AdvReac Type Severity Reaction Status Date / Time carbamazepine [From TEGRETOL] Allergy Mild Verified 09/25/18 17:49 Exam Data for Last 24 hours Vital signs and Labs for Last 24 Hours: Temp Pulse Resp BP Pulse Ox 101.1 F H 121 H 24 139/94 H 96 02/25/22 00:27 02/25/22 01:30 02/25/22 01:00 02/25/22 01:30 02/25/22 01:30 Laboratory Results - last 24 hr 02/25/22 00:38: WBC 19.4 H, RBC 5.83, Hgb 15.1, Hct 47.7, MCV 81.9, MCH 25.8 L, MCHC 31.5 L, RDW 14.3, Plt Count 528 H, MPV 8.1, Neut % (Auto) 85.3 H, Lymph % (Auto) 8.4 L, [place] % (Auto) 4.5, Eos % (Auto) 1.1, Baso % (Auto) 0.8, Neut # (Auto) 16.6 H, Lymph # (Auto) 1.6, [place] # (Auto) 0.9, Eos # (Auto) 0.2, Baso # (Auto) 0.2, ESR 9 02/25/22 00:38: Sodium 145, Potassium 4.2, Ch
[2022-02-25 02:54] LABS: Eosinophils % 3 % (0-3); Lymphocytes % 10 % (10-50); Monocytes % 1 % (2-9); Neutrophils % 86 % (42-76); Platelet Estimate Normal; RBC Morphology Normal; Total Cells Counted 100
--- NOTE | 2022-02-25 04:19 | PC.NURSE ---
PT ARRIVED TO FLOOR VIA STRETCHER AT THIS TIME
--- NOTE | 2022-02-25 10:17 | PC.NURSE ---
courtesy tech round: pt is sitting up in bed watching tv with no requests voiced at this time.
--- NOTE | 2022-02-25 11:05 | DIET.NUTRFU ---
Addendum entered by Bianca Lafleur RD, LD 02/25/22 13:34: Spoke to mother about her thoughts on the TF: pump vs bolus. Originally she thought pump would best, hoping to run it though the night. Talked about being at 45 degree ankle when TF is running and even though she has a hospital bed he likes to sleep flat and she thought that might be difficult. So then she thought bolus maybe better is tolerated so she can give it to him when up in chair during the day. This RD told her to think about it and let the staff know what she would prefer. Last TF was a J-tube at 18months, she reported it was d/t hx of Gastroparaesis. Will follow-up with what surgeon recommends Original Note: spoke to JOB CHECKER after bedside swallow exam, patient has had multiple choking episodes reported by mother. She indicated he chokes mostly with liquids and takes sometimes 1-2 hours to eat a meal. He has hx of autism and does not follow directions. Would not allow JOB CHECKER to feed him during trials his mother had to complete the trials while speech watched. JOB CHECKER did not feel e was good candidate for MBSS which is need to role out aspiration. Therefore any liquids maybe putting him at risk. His mother did report him having PNA often. Provider and JOB CHECKER spoke to mother about feeding tube, he had one when younger. After a through explanation of concerns she was agreeable to PEG placement. Currently patient has sepsis and may not appropriate for sx, but when ready sx was consulted. Until PEG can be placed JOB CHECKER negotiated pureed, NTL with meds crushed in applesauce but no advance in diet has been made at this point. Will follow up with JOB CHECKER and provider to determine how we can best meet nutritional needs until PEG is placed. NaCl is in place for hydration, labs reviewed.
--- NOTE | 2022-02-25 11:54 | HMH.SLDYSPHA ---
Speech & Language Evaluation Speech/Language Dysphagia Evaluation Start: 02/25/22 10:50 Freq: ONCE Status: Active Protocol: Document 02/25/22 10:55 CHAPARRORACHAEL (Rec: 02/25/22 11:[address] [facility]ENNIFERFAIR[facility] [id number]) Dysphagia Assess/Goals/Plan Assessment Date of Evaluation: 02/25/22 Evaluation Type Initial Certification Assessment/Problems Pt assessed using a clinical bedside swallow evaluation per MD order. Does Patient Qualify for Service Yes Qualify/Failure Comment Pt qualifies for speech therapy services as CHILLER OPERATOR will folllow up with recommended diet (nectar thick liquids and purees) discussed with mother (with acknowledged risk of aspiration) until pt is stable enough for PEG placement per MD order. Recommendations PHYSICIAN CERTIFICATION: The specified therapy services are required, authorized, and reviewed every 30 days. Pt will be seen # times/week 2 for # weeks 4 Liquid Type Recommendations [place] Consistency SL Swallow Guidelines Assist w/all meals,Crush meds as allowed*,Eat at slow rate, Place food* Crush Meds Crush all meds,Subs. delivery (liquid?) Dysphagia Swallow Precautions/Strategies Sitting Upright (90 deg),Small Bites and Sips,Alternate Liquids/Solids Additional Consults Recommended Nutritional Consult,Care Management Comment CHILLER OPERATOR provided education to case management, surgical elastic knitter, and MD regarding bedside performance following extended evaluation 2' to mother's hesitancy, as well as noncompliance from pt. Recommendation: NPO with PEG placement 2' decreased mental status, cognitive linguistic deficits, and reported extended meal times from mother. MD stated he will follow up for PEG as pt bcomes more stable. Plan Anticipate reaching STG in # weeks 2 Anticipate reaching LTG in # weeks 4 Pt/Guardian verbally ack understanding Yes of dx/prognosis/goals G -code Required No Nursing Home Goals Diet puree with Liq
--- NOTE | 2022-02-25 15:54 | PC.NURSE ---
Received detailed report from Sarah Bains RN at this time.
--- NOTE | 2022-02-25 17:36 | EXP.PN ---
Subjective *Date: 02/25/22 *Time: 17:36 Interval history: The patient is an unreliable historian and the history is acquired from his mother at bedside. I am accompanied by multiple members of the MDR team for the patient's evaluation. Nursing staff reported T-max 101.1 with tachycardia and elevated blood pressures. He is requiring 2 L of oxygen via nasal cannula to maintain appropriate oxygen saturations. Speech therapy has evaluated the patient has recommended nectar thick liquids with pur?ed consistency. Mother is interesting in progressing to PEG tube feeding concerning his presentation for aspiration and difficulty with feeding at home. His morning labs have been reviewed and discussed including his leukocytosis. Exam Data for Last 24 hours Vital signs and Labs for Last 24 Hours: Temp Pulse Resp BP Pulse Ox FiO2 100.1 F H 114 H 20 137/90 95 100 02/25/22 16:00 02/25/22 16:00 02/25/22 16:00 02/25/22 16:00 02/25/22 16:00 02/25/22 05:07 Laboratory Results - last 24 hr 02/25/22 00:38: WBC 19.4 H, RBC 5.83, Hgb 15.1, Hct 47.7, MCV 81.9, MCH 25.8 L, MCHC 31.5 L, RDW 14.3, Plt Count 528 H, MPV 8.1, Neut % (Auto) 85.3 H, Lymph % (Auto) 8.4 L, [place] % (Auto) 4.5, Eos % (Auto) 1.1, Baso % (Auto) 0.8, Neut # (Auto) 16.6 H, Lymph # (Auto) 1.6, [place] # (Auto) 0.9, Eos # (Auto) 0.2, Baso # (Auto) 0.2, Total Counted 100, Neutrophils % (Manual) 86 H, Lymphocytes % (Manual) 10, Monocytes % (Manual) 1 L, Eosinophils % (Manual) 3, Platelet Estimate Normal, RBC Morphology Normal, ESR 9 02/25/22 00:38: Sodium 145, Potassium 4.2, Chloride 104, Carbon Dioxide 25, Anion Gap 20.2 H, BUN 8 L, Creatinine 0.90, Estimated Creat Clear 208, Estimated GFR 98, Est GFR ( Amer) 118, Glucose 158 H, Calcium 8.9, Total Bilirubin 0.1 L, AST 26, ALT 35, Alkaline Phosphatase 182 H, C-Reactive Protein 56.5 H, Total Protein 8.5 H, Albumin 4.5, Globulin 4.0 H, Albumin/Globulin Ratio 1.1, Procalcitonin 0.090 02/25/22 00:38: Lactate 1.1 02/25/22 00:41: Specimen Source Right radial, O2 % 3lpm, ABG pH 7.39, ABG pCO2 34.8 L, ABG pO2 76.1 L, ABG HCO3 20.5 L, ABG Total CO2 21.6 L, ABG O2 Saturation 95, ABG Base Excess -4.4 L, Estuardo Test Patient unable 02/25/22 00:49: SARS-CoV-2 (PCR) Not detected, Influenza A Untype (PCR) Not detected, Influenza Type B (PCR) Not detected 02/25/22 01:04: Urine Color Yellow, Urine Appearance Clear, Urine pH 6.5, Ur Specific [place] 1.020, Urine Protein Negative, Urine Glucose (UA) Negative, Urine Ketones Negative, Urine Blood Negative, Urine Nitrate Negative, Urine Bilirubin Negative, Urine Urobilinogen 0.2, Ur Leukocyte Esterase Negative, Urine RBC Occasional, Urine WBC Occasional, Urine Bacteria Trace, Hyaline Casts Occasional I & O for Last 24 hours: Intake & Output 02/22/22 02/23/22 02/24/22 02/25/22 23:59 23:59 23:59 23:59 Intake Total 1400 / 1400 Output Total 1250 / 1250 Balance 150 / 150 Weight 124 kg Constitutional Constitutional: no acute distress, morbidly obese and chronically ill appearing *Routine HEENT Exam Head: Present normocephalic Eye: Present EOMI and PERRL ENT: Present mucous membranes moist *Routine Neck Exam Neck: Present supple and trachea midline; Absent lymphadenopathy or thyromegaly *Routine Respiratory Exam Respiratory: Present decreased breath sounds, rhonchi, crackles and diminished air movement; Absent respiratory distress *Routine Cardiovascular Exam Cardiovascular: Present Normal S1, Normal S2 and tachycardia; Absent murmur *Routine Abdominal Exam Abdominal: Present soft, normoactive bowel sounds and surgical scars *Routine Extremities Exam Extremities: Present pulses intact and normal capillary refill; Absent edema *Routine Skin Exam Skin: Present warm and normal turgor; Absent rash *Routine Neurological Exam Neurological: Present alert and motor deficit; Absent oriented X3 or normal speech Routine Psychiatric Exam Psychiatric: Present cooperative Assessment and Plan *Assessment
--- NOTE | 2022-02-25 19:01 | PC.NURSE ---
Since taking over care of pt, he has done well. Pt had a slightly elevated temperature this shift, PRN tylenol given per jun. Spoke to MD Cruz regarding general surgery consult, he will be in to see patient tomorrow and will likely schedule peg tube placement on Monday. Mother remains at bedside, call light remains in reach.
--- NOTE | 2022-02-25 22:38 | XR_ITS ---
PROCEDURE INFORMATION: Exam: XR Chest Exam date and time: 02/25/2022 11:10 PM Age: 31 years old Clinical indication: Shortness of breath; Additional info: Change in breathing pattern TECHNIQUE: Imaging protocol: Radiologic exam of the chest. Views: 1 view. COMPARISON: CR XR CHEST PORTABLE 02/25/2022 1:13 AM FINDINGS: Tubes, catheters and devices: Neuro stimulation device in the left hemithorax with the electrode extending to the base of the neck on left. Lungs: Marked hypoinflation. Persistent right basilar opacity related to atelectasis or pneumonia. Elevation of the right hemidiaphragm which is somewhat obscured. Consideration should be given to possible air under the right hemidiaphragm. Pleural spaces: No significant effusion. No pneumothorax. Heart/Mediastinum: Cardiomegaly. Bones/joints: No acute findings. IMPRESSION: 1. Exam is limited secondary to marked hypoventilation. 2. Elevation of the right hemidiaphragm with associated basilar opacity related to atelectasis and or pneumonia. 3. Consideration should be given to possible free intraperitoneal air on the right in the appropriate clinical circumstance.
[2022-02-25 23:13] LABS: ABG Base Excess -6.5 mmol/L (-2.4-2.3); ABG HCO3 18.7 mmhg (22.0-26.0); ABG Oxygen Saturation 95 % (90-100); ABG PCO2 32.7 mmhg (35.0-45.0); ABG PH 7.38 mmol/L (7.35-7.45); ABG PO2 75.7 mmhg (80-100); ABG TCO2 19.7 mmhg (23-27); Allen's Test Patient Unable; Oxygen 2LPM %; Source Right Radial
[2022-02-26] VITALS (8 sets, daily range): BP systolic 116–139; BP diastolic 77–89; PULSE 88–111; RESP 16–20; TEMP 37.4–37.9; O2SAT 93–98; BMI 40.7
--- NOTE | 2022-02-26 00:12 | CT_ITS ---
PROCEDURE INFORMATION: Exam: CT Chest Without Contrast; Diagnostic Exam date and time: 02/26/2022 1:24 AM Age: 31 years old Clinical indication: Other: Hypoxia TECHNIQUE: Imaging protocol: Diagnostic computed tomography of the chest without contrast. Radiation optimization: All CT scans at this facility use at least one of these dose optimization techniques: automated exposure control; mA and/or kV adjustment per patient size (includes targeted exams where dose is matched to clinical indication); or iterative reconstruction. COMPARISON: CR XR CHEST PORTABLE 02/25/2022 11:10 PM FINDINGS: Tubes, catheters and devices: Neuro stimulator device in the subpectoral location in the left hemithorax with electrode terminating at approximately the level of the vocal folds along the medial border of the left SCM. Trachea: There is small amount of mucous in the trachea just above the taylor. Lungs: Low lung volumes. Consolidation in the dependent right upper lobe, right lower lobe and right middle lobe with air bronchograms. Mild dependent consolidation in the left lower lobe as well. Pleural spaces: No pneumothorax. No pleural effusion. Heart: No cardiomegaly. No pericardial effusion. No significant coronary artery calcifications are identified. Lymph nodes: No pathologically enlarged lymph nodes. Vasculature: Unremarkable. No aortic aneurysm. Diaphragm: Elevation of the right hemidiaphragm. Liver: Diffuse hepatic steatosis. Gallbladder and bile ducts: Distended but otherwise unremarkable gallbladder. Intraperitoneal space: No evidence of free intraperitoneal air. Bones/joints: No acute fracture. Soft tissues: No acute findings. IMPRESSION: 1. No evidence of free intraperitoneal air. 2. Consolidation in the dependent right upper, middle and lower lobes at least partially related to atelectasis although concurrent pneumonia should be considered. Likely dependent atelectasis in the left lower lobe. 3. Low lung volumes with elevation of the right hemidiaphragm. 4. Small amount of mucous in the trachea. 5. Hepatic steatosis.
--- NOTE | 2022-02-26 00:32 | EXP.PN ---
Subjective *Date: 02/26/22 *Time: 06:39 Interval history: 02/26/2022 Progress Note I saw and examined this 31-year-old male. Upon examination of this patient he appears to be in no acute distress and nontoxic in nature. He has a history of Autism, Seizure disorder, non-verbal and bed bound status cared at home for by his mother. He was admitted through the ER due to appearance of difficulty breathing and acting outside his normal, with imaging and diagnostics concerning for Sepsis and Pneumonia Mom is the primary caregiver and she advised me that he has had pneumonia in the past and he has never used his stomach muscles to breath like he has the past few hours. I reviewed recent labs and imaging and will order additional studies to evaluate the abnormal findings. Will continue clinical treatment and update as needed with results. Exam Data for Last 24 hours Vital signs and Labs for Last 24 Hours: Temp Pulse Resp BP Pulse Ox FiO2 100.6 F H 103 H 18 125/81 95 100 02/25/22 20:00 02/25/22 20:00 02/25/22 20:00 02/25/22 20:00 02/25/22 20:00 02/25/22 05:07 Laboratory Results - last 24 hr 02/25/22 00:38: WBC 19.4 H, RBC 5.83, Hgb 15.1, Hct 47.7, MCV 81.9, MCH 25.8 L, MCHC 31.5 L, RDW 14.3, Plt Count 528 H, MPV 8.1, Neut % (Auto) 85.3 H, Lymph % (Auto) 8.4 L, [place] % (Auto) 4.5, Eos % (Auto) 1.1, Baso % (Auto) 0.8, Neut # (Auto) 16.6 H, Lymph # (Auto) 1.6, [place] # (Auto) 0.9, Eos # (Auto) 0.2, Baso # (Auto) 0.2, Total Counted 100, Neutrophils % (Manual) 86 H, Lymphocytes % (Manual) 10, Monocytes % (Manual) 1 L, Eosinophils % (Manual) 3, Platelet Estimate Normal, RBC Morphology Normal, ESR 9 02/25/22 00:38: Sodium 145, Potassium 4.2, Chloride 104, Carbon Dioxide 25, Anion Gap 20.2 H, BUN 8 L, Creatinine 0.90, Estimated Creat Clear 208, Estimated GFR 98, Est GFR ( Amer) 118, Glucose 158 H, Calcium 8.9, Total Bilirubin 0.1 L, AST 26, ALT 35, Alkaline Phosphatase 182 H, C-Reactive Protein 56.5 H, Total Protein 8.5 H, Albumin 4.5, Globulin 4.0 H, Albumin/Globulin Ratio 1.1, Procalcitonin 0.090 02/25/22 00:38: Lactate 1.1 02/25/22 00:41: Specimen Source Right radial, O2 % 3lpm, ABG pH 7.39, ABG pCO2 34.8 L, ABG pO2 76.1 L, ABG HCO3 20.5 L, ABG Total CO2 21.6 L, ABG O2 Saturation 95, ABG Base Excess -4.4 L, Estuardo Test Patient unable 02/25/22 00:49: SARS-CoV-2 (PCR) Not detected, Influenza A Untype (PCR) Not detected, Influenza Type B (PCR) Not detected 02/25/22 01:04: Urine Color Yellow, Urine Appearance Clear, Urine pH 6.5, Ur Specific [place] 1.020, Urine Protein Negative, Urine Glucose (UA) Negative, Urine Ketones Negative, Urine Blood Negative, Urine Nitrate Negative, Urine Bilirubin Negative, Urine Urobilinogen 0.2, Ur Leukocyte Esterase Negative, Urine RBC Occasional, Urine WBC Occasional, Urine Bacteria Trace, Hyaline Casts Occasional 02/25/22 22:38: Specimen Source Right radial, O2 % 2lpm, ABG pH 7.38, ABG pCO2 32.7 L, ABG pO2 75.7 L, ABG HCO3 18.7 L, ABG Total CO2 19.7 L, ABG O2 Saturation 95, ABG Base Excess -6.5 L, Estuardo Test Patient unable I & O for Last 24 hours: Intake & Output 02/23/22 02/24/22 02/25/22 02/26/22 23:59 23:59 23:59 23:59 Intake Total 2865 / 2865 Output Total 1500 / 1500 Balance 1365 / 1365 Weight 124 kg Constitutional Constitutional: no acute distress, morbidly obese and chronically ill appearing *Routine HEENT Exam Head: Present normocephalic Eye: Present EOMI and PERRL ENT: Present mucous membranes moist *Routine Neck Exam Neck: Present supple and trachea midline; Absent lymphadenopathy or thyromegaly *Routine Respiratory Exam Respiratory: Present accessory muscle use, decreased breath sounds, rhonchi, crackles and diminished air movement; Absent respiratory distress *Routine Cardiovascular Exam Cardiovascular: Present Normal S1, Normal S2 and tachycardia; Absent murmur *Routine Abdominal Exam Abdominal: Present soft, normoactive bowel sounds and surgical scars *Routine Extremities Exam
--- NOTE | 2022-02-26 01:20 | PC.NURSE ---
Pt off floor to CT.
--- NOTE | 2022-02-26 07:04 | EXP.HP ---
History of Present Illness *Admission Date: 02/25/22 *History of present illness: Mr. Overton is a 31-year-old male cared for in his home by his mother, non-verbal, bed bound status with a reported history of Autism, Seizure disorder, Gastroparesis and Osteoporosis. He presented to [facility] today, 02/25/2022 due to concerns over his breathing and not appearing his normal self. The patient was seen on admission in the ER. Mother was at bedside and gave the information for the history and physical. She reports that this evening the patient was not acting his normal self. She reported that it seemed that he was having difficulty breathing, she reports that she gave the patient some ibuprofen and his symptoms continued so she brought him into the ER for evaluation. In the ER, the patient was noted to be febrile with a temperature of 101.1, HR 121, WBC was 19.4, Cxray was concerning for a right basilar consolidation. The patient will be admitted with initial impression of Sepsis with a concern for possible Aspiration Pneumonia. The mother reports that the patient appears to be choking with thin liquids. Cultures were drawn in the ER prior to antibiotic administration. Speech will be consulted to see the patient. The plan of care was discussed with the mother at bedside prior to the patient's admission. The mother verbalized understanding and agreement with the plan of care. [facility] Medical History (Updated 02/26/22 @ 00:55 by Binta Montalvo APRN) Autism Gastroparesis History of jejunostomy tube placement Osteoporosis Seizure disorder Surgical History H/O brain surgery Family History Other Family history non-contributory Social History (Updated 02/25/22 @ 04:53 by Radha Blank RN) Smoking Status: Never smoker alcohol intake: never current occupational status: disabled Travel in the last 8 weeks: None household members: family housing: house lives independently: No marital status: single service: No alf: No pets and animals: Yes (Cat) pets and animals: cat(s) sexually active: No Meds Home Medications and Allergies Home Medications Medication Instructions Recorded Confirmed Type clobazam 20 mg tablet (Onfi) 20 mg PO BID lobo-gastaut sydrome 09/25/18 02/25/22 History montelukast 10 mg tablet 10 mg PO PM Breathing problems 09/25/18 02/25/22 History topiramate 100 mg tablet 300 mg PO DAILY Seizures 09/25/18 02/25/22 History topiramate 100 mg tablet 500 mg PO HS Seizures 09/25/18 02/25/22 History famotidine 20 mg tablet 20 mg PO DAILY acid reflux 03/22/20 02/25/22 History zonisamide 100 mg capsule 100 mg PO BID seizures 03/22/20 02/25/22 History zonisamide 50 mg capsule 50 mg PO BID seizures 03/22/20 02/25/22 History L.acidophilus-L.paracasei-B.bifidum-S.thermophl 1 cap PO DAILY probiotic 02/25/22 02/25/22 History 8 billion cell capsule lansoprazole 30 mg capsule,delayed 30 mg PO BID acid reflux 02/25/22 02/25/22 History release (Prevacid) levetiracetam 1,000 mg tablet 2,000 mg PO BID seizures 02/25/22 02/25/22 History (Keppra) midazolam 5 mg/spray (0.1 mL) 1 spray intranasal DIRECTED PRN 02/25/22 02/25/22 History nasal spray (Nayzilam) Seizures New Prescriptions to Start Prescriptions: Allergies Allergy/AdvReac Type Severity Reaction Status Date / Time carbamazepine [From TEGRETOL] Allergy Mild Verified 09/25/18 17:49 Exam Data for Last 24 hours Vital signs and Labs for Last 24 Hours: Temp Pulse Resp BP Pulse Ox FiO2 99.3 F 97 H 16 139/88 98 100 02/26/22 04:00 02/26/22 04:00 02/26/22 04:00 02/26/22 04:00 02/26/22 04:00 02/25/22 05:07 Laboratory Results - last 24 hr 02/25/22 22:38: Specimen Source Right radial, O2 % 2lpm, ABG pH 7.38, ABG pCO2 32.7 L, ABG pO2 75.7 L, ABG HCO3 18.7 L, ABG T
--- NOTE | 2022-02-26 07:40 | PC.NURSE ---
Pt has slept at intervals this shift. Pt was noted to be belly breathing. Pt's mom was concerned about breathing and stated that pt has never breathed like this before . CXR and CT later obtained. Pt has been febrile at times. Has been tachycardic at times. Medication administered per mar. Gerson Montalvo rounded at bedside. Call light within reach. Mom at bedside.
--- NOTE | 2022-02-26 12:39 | EXP.SURG.CON ---
History of Present Illness *Admission Date: 02/25/22 *Reason for visit:: PEG Placement *History of present illness: Patient is a 31-year-old male from [place] with history of autism, seizure disorder. He is bedbound and nonverbal and cared for by his mother. He presented to [facility] emergency department early yesterday morning on 02/25/2022 due to family concerns over his breathing and patient seemingly somewhat ill. When he presented to the emergency department he was noted to have a temperature of 101.1, heart rate 121, white blood cell count 19,400. Chest x-ray concerning for pneumonia. Family reports that the patient appears to be potentially showing signs of aspiration with thin liquids. Patient does have a diagnosis of gastroparesis. He apparently has previously had a jejunostomy tube due to the gastroparesis when he was very young. Patient had been seen by dietary and speech therapy. Surgery was consulted yesterday evening, 02/25/2022, for possible PEG tube placement. Patient continues to show signs of possible sepsis with fevers and tachycardia. He had a CT scan of the chest performed today which revealed several findings but most notable consolidation in the dependent right upper, middle, and lower lobes at least partially related to atelectasis although concurrent pneumonia should be considered. [facility] Medical History (Updated 02/26/22 @ 12:59 by Joseluis Bender MD) Autism Gastroparesis History of jejunostomy tube placement Osteoporosis Seizure disorder Surgical History H/O brain surgery Family History Family history non-contributory Social History (Updated 02/25/22 @ 04:53 by Radha Blank RN) Smoking Status: Never smoker alcohol intake: never current occupational status: disabled Travel in the last 8 weeks: None household members: family housing: house lives independently: No marital status: single service: No m[facility]: No pets and animals: Yes (Cat) pets and animals: cat(s) sexually active: No Meds Home Medications and Allergies Home Medications Medication Instructions Recorded Confirmed Type clobazam 20 mg tablet (Onfi) 20 mg PO BID lobo-gastaut sydrome 09/25/18 02/25/22 History montelukast 10 mg tablet 10 mg PO PM Breathing problems 09/25/18 02/25/22 History topiramate 100 mg tablet 300 mg PO DAILY Seizures 09/25/18 02/25/22 History topiramate 100 mg tablet 500 mg PO HS Seizures 09/25/18 02/25/22 History famotidine 20 mg tablet 20 mg PO DAILY acid reflux 03/22/20 02/25/22 History zonisamide 100 mg capsule 100 mg PO BID seizures 03/22/20 02/25/22 History zonisamide 50 mg capsule 50 mg PO BID seizures 03/22/20 02/25/22 History L.acidophilus-L.paracasei-B.bifidum-S.thermophl 1 cap PO DAILY probiotic 02/25/22 02/25/22 History 8 billion cell capsule lansoprazole 30 mg capsule,delayed 30 mg PO BID acid reflux 02/25/22 02/25/22 History release (Prevacid) levetiracetam 1,000 mg tablet 2,000 mg PO BID seizures 02/25/22 02/25/22 History (Keppra) midazolam 5 mg/spray (0.1 mL) 1 spray intranasal DIRECTED PRN 02/25/22 02/25/22 History nasal spray (Nayzilam) Seizures New Prescriptions to Start Prescriptions: Allergies Allergy/AdvReac Type Severity Reaction Status Date / Time carbamazepine [From TEGRETOL] Allergy Mild Verified 09/25/18 17:49 Exam (Inpt) Vital signs and Labs for Last 24 Hours: Temp Pulse Resp BP Pulse Ox FiO2 99.9 F H 111 H 18 116/81 95 100 02/26/22 11:24 02/26/22 11:24 02/26/22 11:24 02/26/22 11:24 02/26/22 11:24 02/25/22 05:07 Laboratory Results - last 24 hr 02/25/22 22:38: Specimen Source Right radial, O2 % 2lpm, ABG pH 7.38, ABG pCO2 32.7 L, ABG pO2 75.7 L, ABG HCO3 18.7 L, ABG Total CO2 19.7 L, ABG O2 Saturation 95, ABG Base Excess -6.5 L, Estuardo Test Patient unable
--- NOTE | 2022-02-26 18:51 | PC.NURSE ---
Patient awake but non-verbal so unable to answer any questions or follow commands. VS stable and patient remained on 2LNC. Breathing treatments ordered per pt mom request. No other changes noted.
[2022-02-27] VITALS (8 sets, daily range): BP systolic 119–151; BP diastolic 72–87; PULSE 90–120; RESP 17–21; TEMP 36.6–38.1; O2SAT 93–98; BMI 40.8
--- NOTE | 2022-02-27 03:37 | PC.NURSE ---
Report given to Sarah Hook RN
--- NOTE | 2022-02-27 03:55 | PC.NURSE ---
Report received from Sarah Villalobos RN
--- NOTE | 2022-02-27 04:53 | PC.NURSE ---
Pts mother refused vital signs for pt at this time.
--- NOTE | 2022-02-27 04:59 | PC.NURSE ---
Pt resting at this time. Pts mother refused 0400 VS. Pt is on 2 L NC with O2 sat >90%. Lungs sounds-diminished. Pt is voiding per graham cath w/ good urine output. IV infusing per order, giving ATBX per JUN. Seizure precautions. Call light in reach, pts mother at bedside.
--- NOTE | 2022-02-27 05:24 | PC.NURSE ---
Patients mother refused vitals
[2022-02-27 08:25] LABS: Basophils # 0.1 K/mm3 (0-0.2); Basophils % 0.7 % (0.1-2.0); Eosinophils # 0.2 K/mm3 (0.0-0.4); Eosinophils % 1.9 % (0.1-12.0); Hematocrit 43.6 % (42.0-52.0); Hemoglobin 13.6 g/dL (14.1-18.0); Lymphocytes # 1.9 K/mm3 (0.7-4.5); Lymphocytes % 16.5 % (10-50); Mean Corpuscular HGB Conc 31.2 g/dL (31.8-35.4); Mean Corpuscular Hemoglobin 25.6 pg (27.0-31.2); Mean Corpuscular Volume 82.1 fl (80-94); Mean Platelet Volume 8.1 fl (7.4-10.4); Monocytes # 0.8 K/mm3 (0.1-1.0); Monocytes % 6.6 % (1.7-9.3); Neutrophils # 8.7 K/mm3 (1.8-7.8); Neutrophils % 74.3 % (37.0-80.0); Platelet Count 529 K/mm3 (142-424); Red Blood Count 5.31 M/mm3 (4.60-6.20); Red Cell Distribution Width 14.4 % (11.5-17.5); White Blood Count 11.7 K/mm3 (4.8-10.8)
--- NOTE | 2022-02-27 11:09 | PC.NURSE ---
Notified Dr. Andrea of positive anaerobic blood culture and pcr/gram stain results.
--- NOTE | 2022-02-27 12:04 | P.PN_ITS ---
Subjective Patient reports: no new complaints Narrative: No new issues Exam Data for Last 24 hours Vital signs and Labs for Last 24 Hours: Temp Pulse Resp BP Pulse Ox FiO2 98.3 F 100 H 17 127/84 93 L 100 02/27/22 12:00 02/27/22 12:00 02/27/22 12:00 02/27/22 12:00 02/27/22 12:00 02/25/22 05:07 Laboratory Results - last 24 hr 02/27/22 07:43: WBC 11.7 H D, RBC 5.31, Hgb 13.6 L, Hct 43.6, MCV 82.1, MCH 25.6 L, MCHC 31.2 L, RDW 14.4, Plt Count 529 H, MPV 8.1, Neut % (Auto) 74.3, Lymph % (Auto) 16.5, [place] % (Auto) 6.6, Eos % (Auto) 1.9, Baso % (Auto) 0.7, Neut # (Auto) 8.7 H, Lymph # (Auto) 1.9, [place] # (Auto) 0.8, Eos # (Auto) 0.2, Baso # (Auto) 0.1 I & O for Last 24 hours: Intake & Output 02/25/22 02/26/22 02/27/22 02/28/22 11:59 11:59 11:59 11:59 Intake Total 1400 / 1400 1465 / 1465 3176 / 3176 Output Total 500 / 850 1675 / 1675 4300 / 4300 Balance 900 / 550 -210 / -210 -1124 / -1124 Weight 273 lb 5.971 oz 284 lb 10.926 oz 285 lb 1 oz Microbiology Reports for the Last 24 Hours: Microbiology 02/25/22 00:38 Blood Blood Culture - Preliminary 02/25/22 00:38 Blood Blood Culture - Preliminary NO GROWTH AFTER 48 HOURS *Routine Abdominal Exam Abdominal: Present soft Progress Note: A&P Assessment and plan (1) Feeding difficulty: Status: Acute Assessment and plan: Patient's white blood cell count and temperature profile have shown some improvement. Tentatively plan to make him n.p.o. after midnight tonight for attempted PEG tube placement possibly tomorrow. However, I have reviewed his CT scan imaging including location and depth of the stomach. There is a significant possibility that PEG tube would not be safely feasible.
--- NOTE | 2022-02-27 13:09 | EXP.PN ---
Subjective *Date: 02/27/22 *Time: 13:09 Interval history: Date of service February 27, 2022 No acute events are reported overnight. Lexus ALVAREZ reports that he remains afebrile with a T-max 100.3 at midnight and stable vital signs. He saturating appropriately on room air. He is tolerating his IV antibiotic with no adverse events. General surgery continues to follow for planned PEG tube placement. His morning labs identify and improve leukocytoses stable electrolytes and creatinine. His anaerobic bottle from his blood cultures is preliminary growing gram-positive cocci in clusters. He continues on the IV Unasyn. Exam Data for Last 24 hours Vital signs and Labs for Last 24 Hours: Temp Pulse Resp BP Pulse Ox FiO2 98.3 F 100 H 17 127/84 93 L 100 02/27/22 12:00 02/27/22 12:00 02/27/22 12:00 02/27/22 12:00 02/27/22 12:00 02/25/22 05:07 Laboratory Results - last 24 hr 02/27/22 07:43: WBC 11.7 H D, RBC 5.31, Hgb 13.6 L, Hct 43.6, MCV 82.1, MCH 25.6 L, MCHC 31.2 L, RDW 14.4, Plt Count 529 H, MPV 8.1, Neut % (Auto) 74.3, Lymph % (Auto) 16.5, [place] % (Auto) 6.6, Eos % (Auto) 1.9, Baso % (Auto) 0.7, Neut # (Auto) 8.7 H, Lymph # (Auto) 1.9, [place] # (Auto) 0.8, Eos # (Auto) 0.2, Baso # (Auto) 0.1 I & O for Last 24 hours: Intake & Output 02/24/22 02/25/22 02/26/22 02/27/22 23:59 23:59 23:59 23:59 Intake Total 2865 / 2865 1694 / 1694 1482 / 1482 Output Total 1500 / 1500 1675 / 1675 3300 / 3300 Balance 1365 / 1365 19 / 19 -1818 / -1818 Weight 124 kg 129.13 kg 129.302 kg Microbiology Reports for the Last 24 Hours: Microbiology 02/25/22 00:38 Blood Blood Culture - Preliminary 02/25/22 00:38 Blood Blood Culture - Preliminary NO GROWTH AFTER 48 HOURS Constitutional Constitutional: no acute distress, morbidly obese and chronically ill appearing *Routine HEENT Exam Head: Present normocephalic Eye: Present EOMI and PERRL ENT: Present mucous membranes moist *Routine Neck Exam Neck: Present supple and trachea midline; Absent lymphadenopathy or thyromegaly *Routine Respiratory Exam Respiratory: Present decreased breath sounds, rhonchi, crackles and diminished air movement; Absent respiratory distress *Routine Cardiovascular Exam Cardiovascular: Present Normal S1, Normal S2 and tachycardia; Absent murmur *Routine Abdominal Exam Abdominal: Present soft, normoactive bowel sounds and surgical scars *Routine Extremities Exam Extremities: Present pulses intact and normal capillary refill; Absent edema *Routine Skin Exam Skin: Present warm and normal turgor; Absent rash *Routine Neurological Exam Neurological: Present alert and motor deficit; Absent oriented X3 or normal speech Routine Psychiatric Exam Psychiatric: Present cooperative Assessment and Plan *Assessment and plan (1) Sepsis: Status: Acute Category: Medical Code(s): A41.9 - Sepsis, unspecified organism (2) Pneumonia: Status: Acute Category: Medical Code(s): J18.9 - Pneumonia, unspecified organism (3) Dysphagia: Status: Acute Category: Medical Code(s): R13.10 - Dysphagia, unspecified (4) Seizure disorder: Status: Acute Category: Medical Code(s): G40.909 - Epilepsy, unspecified, not intractable, without status epilepticus (5) Autism: Status: Acute Category: Medical Code(s): F84.0 - Autistic disorder Plan 31-year-old male with reported history of Autism, Seizure disorder, non-verbal and bed bound status cared at home for by his mother presents due to appearance of difficulty breathing and acting outside his normal, imaging and diagnostics concerning for Sepsis and aspiration pneumonia Sepsis (POA) - Sepsis criteria met on admission: Temperature 101.1, HR 121, WBC 19.4, Suspected source Pneumonia - Resolving - Mother reports recent choking events with water, concern for Aspiration - Cxray concerning for Right basila
--- NOTE | 2022-02-27 16:08 | PC.NURSE ---
No acute changes noted. 2LNC weaned to room air. VS stable. Patient remains non-verbal but able to make noises. IV antibiotics given. Lung sounds on ascultation diminished.
[2022-02-28] VITALS (18 sets, daily range): BP systolic 106–138; BP diastolic 59–95; PULSE 77–104; RESP 18–22; TEMP 36.4–37.5; O2SAT 94–98; BMI 41.1
--- NOTE | 2022-02-28 06:25 | PC.NURSE ---
No acute changes noted. Pt has slept at intervals this shift. Has been febrile x1 and tachycardic. He is on RA with O2 sats mid to upper 90s. Mother of pt requested for pt to have enema. States that pt has to have enema every 3 days in order to have BM. Gerson Montalvo contacted. Allran also contacted due to possible peg placement for following day. OK to give soap suds enema. Orders carried out. Pt had a large brown, soft stool. He is currently NPO. No other concerns at this time. Call within reach. Mother at bedside.
[2022-02-28 08:59] LABS: Basophils # 0.1 K/mm3 (0-0.2); Eosinophils # 0.3 K/mm3 (0.0-0.4); Eosinophils % 3.3 % (0.1-12.0); Hematocrit 42.8 % (42.0-52.0); Hemoglobin 13.5 g/dL (14.1-18.0); Lymphocytes % 20.5 % (10-50); Mean Corpuscular HGB Conc 31.6 g/dL (31.8-35.4); Mean Corpuscular Hemoglobin 25.9 pg (27.0-31.2); Mean Corpuscular Volume 81.9 fl (80-94); Mean Platelet Volume 8.3 fl (7.4-10.4); Monocytes # 0.6 K/mm3 (0.1-1.0); Monocytes % 6.1 % (1.7-9.3); Neutrophils # 6.7 K/mm3 (1.8-7.8); Neutrophils % 69.2 % (37.0-80.0); Platelet Count 475 K/mm3 (142-424); Red Blood Count 5.23 M/mm3 (4.60-6.20); Red Cell Distribution Width 14.5 % (11.5-17.5); White Blood Count 9.7 K/mm3 (4.8-10.8)
--- NOTE | 2022-02-28 09:00 | PC.NURSE ---
called and spoke with Jairo in preop. notified him that pt had meds with applesauce this am at the insistence of pt mother and caregiver. she stated that she wanted meds given before procedure instead of after in case his throat was too sore and he refused to swallow anything.
[2022-02-28 09:11] LABS: Chloride 113 mmol/L (98-107); Potassium 4.4 mmoL/L (3.5-5.1); Sodium 143 mmol/L (136-145)
[2022-02-28 09:14] LABS: Anion Gap 15.4 mEq/L (5-15); Blood Urea Nitrogen 5 mg/dl (9-20); Calcium 8.6 mg/dl (8.4-10.2); Carbon Dioxide 19 mmol/L (22.0-30.0); Creatinine Clearance Estimated 183 mL/min (50-200); Estimated Glomerular Filt Rate 156 ml/min (>60); GFR (African American) 189 ML/MIN (>60); Glucose 91 mg/dl (74-100)
--- NOTE | 2022-02-28 09:20 | EXP.SURG.PN ---
Subjective Narrative: No major new problems. Mother does state that he may have thrush as he is complaining of sore throat. According to her he has no issues with food intake but has difficulty with thin, not thickened liquids. Exam Data for Last 24 hours Vital signs and Labs for Last 24 Hours: Temp Pulse Resp BP Pulse Ox FiO2 97.5 F L 88 18 131/92 H 95 100 02/28/22 08:00 02/28/22 08:00 02/28/22 08:00 02/28/22 08:00 02/28/22 08:00 02/25/22 05:07 Laboratory Results - last 24 hr 02/28/22 08:50: WBC 9.7, RBC 5.23, Hgb 13.5 L, Hct 42.8, MCV 81.9, MCH 25.9 L, MCHC 31.6 L, RDW 14.5, Plt Count 475 H, MPV 8.3, Neut % (Auto) 69.2, Lymph % (Auto) 20.5, [place] % (Auto) 6.1, Eos % (Auto) 3.3, Baso % (Auto) 1.0, Neut # (Auto) 6.7, Lymph # (Auto) 2.0, [place] # (Auto) 0.6, Eos # (Auto) 0.3, Baso # (Auto) 0.1 02/28/22 08:50: Sodium 143, Potassium 4.4, Chloride 113 H, Carbon Dioxide 19 L, Anion Gap 15.4 H, BUN 5 L, Creatinine 0.60 L, Estimated Creat Clear 183, Estimated GFR 156, Est GFR ( Amer) 189, Glucose 91, Calcium 8.6 I & O for Last 24 hours: Intake & Output 02/25/22 02/26/22 02/27/22 02/28/22 11:59 11:59 11:59 11:59 Intake Total 1400 / 1400 1465 / 1465 3176 / 3176 3763 / 3763 Output Total 500 / 850 1675 / 1675 4300 / 4300 2350 / 2350 Balance 900 / 550 -210 / -210 -1124 / -1124 1413 / 1413 Weight 273 lb 5.971 oz 284 lb 10.926 oz 285 lb 1 oz 287 lb 11.252 oz Microbiology Reports for the Last 24 Hours: Microbiology 02/25/22 00:38 Blood Blood Culture - Preliminary Gram Positive Cocci Progress Note: A&P Assessment and plan (1) Sepsis: Status: Acute (2) Pneumonia: Status: Acute (3) Dysphagia: Status: Acute Assessment and plan: Plan for attempted PEG today. Given the patient's body habitus this may not be feasible and does carry some increased morbidity. (4) Seizure disorder: Status: Acute (5) Autism: Status: Acute
--- NOTE | 2022-02-28 10:14 | PC.NURSE ---
RESP CARE NOTE: Pt out of room at this time. Will attempt sputum specimen when patient returns to room.
--- NOTE | 2022-02-28 10:15 | P.PN_ITS ---
Subjective *Date: 02/28/22 *Time: 10:15 Medical Exam Vital signs and Labs for Last 24 Hours: Vital Signs Temp Pulse Pulse Resp BP Pulse Ox 02/28/22 08:00 97.5 F L 88 18 131/92 H 95 02/28/22 08:00 88 95 02/28/22 04:00 97.9 F 92 H 22 107/59 L 96 02/28/22 00:00 99.5 F 96 H 18 129/81 96 02/27/22 20:00 100.5 F H 120 H 20 151/83 H 97 02/27/22 20:13 90 02/27/22 20:13 91 H 02/27/22 15:41 99.0 F 103 H 18 133/87 94 L 02/27/22 14:24 96 H 02/27/22 14:24 94 H 02/27/22 14:24 97 02/27/22 12:00 98.3 F 100 H 17 127/84 93 L Intake and Output 02/27/22 02/28/22 02/28/22 23:59 07:59 15:59 Intake Total 2450 / 3932 1313 / 1313 Output Total 650 / 4850 800 / 800 0 / 800 Balance 1800 / -918 513 / 513 0 / 513 Intake: Intake, Oral Amount 120 / 360 Intake, Total IV Amount 2330 / 3572 1313 / 1313 0.9 % Sodium Chloride 1,000 ml 2330 / 3572 1313 / 1313 @ 100 mls/hr IV .Q10H [facility] Rx#: [id number] Output: Output, Urine Amount 650 / 2750 800 / 800 0 / 800 Other: Number of Voids 0 Number of Unmeasured Voids 0 0 0 Number of Bowel Movements 1 0 Weight 130.5 kg Patient Weight 02/28/22 23:59 Weight 130.5 kg Laboratory Results - last 24 hr 02/28/22 08:50: WBC 9.7, RBC 5.23, Hgb 13.5 L, Hct 42.8, MCV 81.9, MCH 25.9 L, MCHC 31.6 L, RDW 14.5, Plt Count 475 H, MPV 8.3, Neut % (Auto) 69.2, Lymph % (Auto) 20.5, [place] % (Auto) 6.1, Eos % (Auto) 3.3, Baso % (Auto) 1.0, Neut # (Auto) 6.7, Lymph # (Auto) 2.0, [place] # (Auto) 0.6, Eos # (Auto) 0.3, Baso # (Auto) 0.1 02/28/22 08:50: Sodium 143, Potassium 4.4, Chloride 113 H, Carbon Dioxide 19 L, Anion Gap 15.4 H, BUN 5 L, Creatinine 0.60 L, Estimated Creat Clear 183, Estimated GFR 156, Est GFR ( Amer) 189, Glucose 91, Calcium 8.6 I & O for Labs for Last 24 Hours: Intake & Output 02/25/22 02/26/22 02/27/22 02/28/22 23:59 23:59 23:59 23:59 Intake Total 2865 / 2865 1694 / 1694 3932 / 3932 1313 / 1313 Output Total 1500 / 1500 1675 / 1675 4850 / 4850 800 / 800 Balance 1365 / 1365 -918 / -918 513 / 513 Weight 124 kg 129.13 kg 129.302 kg 130.5 kg Microbiology Reports for the Last 24 Hours: Microbiology 02/25/22 00:38 Blood Blood Culture - Preliminary Gram Positive Cocci The patient's infection will respond to the chosen ABx?: Yes (BLOOD CULTURE = GPC, ID/SENSITIVITY PENDING) Is the patient receiving the right drug, dose, and route?: Yes Could a more targeted ABx be ordered?: No
--- NOTE | 2022-02-28 10:26 | HMH.SCOPE ---
Procedure: Date: 02/28/22 Patient Date of :: 1990 Procedure Performed:: Esophagogastroduodenoscopy Indications:: Patient is a 31-year-old male from [place] with history of autism and seizure disorder. He had presented to the emergency department in the hematology technician of 02/25/2022 due to family concerns over his breathing and the patient's seemingly somewhat ill. He presented with signs of sepsis with fever and tachycardia and leukocytosis. Imaging revealed findings consistent with pneumonia. Patient does have a diagnosis of gastroparesis. He apparently did have a previous jejunostomy tube when he was very young. Patient had been seen by dietary and speech therapy. Surgery was consulted in the evening of 02/25/2022 after admission for consideration of PEG tube placement. Patient convalesced regarding apparent pneumonia. Plan was made to proceed with attempt at PEG tube placement. It was explained to the family that this may not be feasible due to the patient's body habitus with weight of 287 pounds. He has apparently been able to tolerate foods but has problems with thin liquids. Attempt was made at PEG tube placement. Performing Provider:: Joseluis Bedner MD Referring Provider:: Solitario Adams Sedation:: MAC sedation Procedure:: Consent was obtained. Patient was taken to endoscopy procedure room. He was given preoperative intravenous antibiotics. He was maintained in a supine position on the hospital bed. Adequate intravenous sedation was achieved with anesthesia titration of propofol. Olympus endoscope was inserted via the oropharynx. There was possible candidiasis of the tongue but this was difficult to determine. Esophagus was cannulated. Endoscope was advanced. Overall the esophagus appeared relatively unremarkable. Gastroesophageal junction was encountered at about 38 cm from the incisors. Stomach was cannulated and insufflated. Retroflexion revealed no evidence of any definite hiatal hernia. There was no visible light reflex. Palpation of the abdomen revealed difficulty discerning safe location for PEG tube placement. Transillumination was attempted in multiple sites within the gastric lumen and no transillumination light reflex was achieved. The endoscope was able to be advanced through the pylorus and into the duodenum a generous distance to see if consideration for possible percutaneous endoscopic jejunostomy tube may be an option by gastroenterology and there was no good light reflex. Endoscope was withdrawn into the gastric lumen and additional attempts were made to locate suitable area for PEG tube placement which no safe area was noted. Stomach was desufflated and the endoscope was withdrawn. Findings:: Gastroesophageal junction at 38 cm Normal gastric lumen No identifiable site for safe PEG tube placement with numerous attempts at transillumination and palpation of the anterior abdomen. Recommendations:: At this time I would recommend continue diet appropriate with aspiration precautions. Any other potential feeding tube placement would carry significant morbidity. Complications:: None immediately apparent Estimated blood obtained (mL): 0
--- NOTE | 2022-02-28 11:02 | EXP.ANES.CKL ---
[facility] Medical History (Updated 02/26/22 @ 12:59 by Joseluis Bender MD) Autism Gastroparesis History of jejunostomy tube placement Osteoporosis Seizure disorder Surgical History H/O brain surgery Family History Other Family history non-contributory Social History (Updated 02/25/22 @ 04:53 by Radha Blank RN) Smoking Status: Never smoker alcohol intake: never substance use type: denies use current occupational status: disabled Travel in the last 8 weeks: None household members: family housing: house lives independently: No marital status: single service: No fci: No pets and animals: Yes (Cat) pets and animals: cat(s) sexually active: No [facility] Anesthesia Checklist Patient Identification Patient Identification: Arm Band, Family and Guardian Structural Data Admitted From: Inpatient Planned Operative Procedure/s: EGD-Possible PEG Tube placement Consent for Planned Operative Procedure(s) Verified: Yes Verified Documents: Surgical Consent and History and Physical NPO Status Verified Time NPO: 00:00 Additional verifications Anesthesia Reactions: No Airway Assessment C-Spine Mobility Assessed: Yes TMJ Mobility Assessed: Yes Dentition: Edentulous Neurological Assessment Level of Consciousness: Awake Anesthesia Plan Anesthesia Risk discussed: Yes Anesthesia Plan: Verified ASA Class: III Anesthesia Type: MAC
--- NOTE | 2022-02-28 11:57 | DIET.NUTRFU ---
Addendum entered by Bianca Lafleur RD, LD 02/28/22 15:33: Patient is staying to receive ABT tx, also started on nystatin for thrush which may affect appetite. Diet was ordered for dinner, will monitor meal intake and determine if supplements will be needed to maintain nutritional status Original Note: According to Herber notes PEG was unable to be placed and he is recommending oral diet to meet caloric needs. When ELECTROSTATIC PAINTER saw patient she was recommending nectar thick liquids with puree solids. Patient is at high risk for malnutrition, mother reports it takes multiple hours just to feed one meal. She also indicated during our interview he likes sugary sodas replacing some of the calories he needs from other foods. Based on his PMH there maybe some behavioral issues around meal time that make decisions about meal choices. Will continue to follow, when appropriate upgrade to YONY navarrete.
--- NOTE | 2022-02-28 14:20 | EXP.PN ---
Subjective *Date: 02/28/22 *Time: 14:20 Interval history: Date of service 02/28/2022 The patient is accompanied by his relative. I am accompanied by his nurse. Nursing staff report of T-max 100.5 at 8 PM last night currently afebrile. His blood pressures and heart rates are stable. He is saturating appropriately on 2 to 4 L of oxygen via nasal cannula. He went down for PEG tube placement today and they were unable to identify a good light reflex for the procedure. We will continue with pur?ed and nectar thick liquids for nutrition. Family is concerned with oral thrush. Microbiology called with his anaerobic bottle identifying a gram-positive species consistent with staph species and his aerobic bottle is negative. His electrolytes identify a mild anion gap acidosis with normal creatinine and electrolytes. His CBC identifies a stable hemoglobin with normal white blood cell count. Exam Data for Last 24 hours Vital signs and Labs for Last 24 Hours: Temp Pulse Resp BP Pulse Ox FiO2 97.6 F 78 22 113/79 95 100 02/28/22 10:23 02/28/22 11:35 02/28/22 11:35 02/28/22 11:35 02/28/22 11:35 02/25/22 05:07 Laboratory Results - last 24 hr 02/25/22 23:18: RSV Nasal Swab Negative 02/28/22 08:50: WBC 9.7, RBC 5.23, Hgb 13.5 L, Hct 42.8, MCV 81.9, MCH 25.9 L, MCHC 31.6 L, RDW 14.5, Plt Count 475 H, MPV 8.3, Neut % (Auto) 69.2, Lymph % (Auto) 20.5, [place] % (Auto) 6.1, Eos % (Auto) 3.3, Baso % (Auto) 1.0, Neut # (Auto) 6.7, Lymph # (Auto) 2.0, [place] # (Auto) 0.6, Eos # (Auto) 0.3, Baso # (Auto) 0.1 02/28/22 08:50: Sodium 143, Potassium 4.4, Chloride 113 H, Carbon Dioxide 19 L, Anion Gap 15.4 H, BUN 5 L, Creatinine 0.60 L, Estimated Creat Clear 183, Estimated GFR 156, Est GFR ( Amer) 189, Glucose 91, Calcium 8.6 I & O for Last 24 hours: Intake & Output 02/25/22 02/26/22 02/27/22 02/28/22 23:59 23:59 23:59 23:59 Intake Total 2865 / 2865 1694 / 1694 3932 / 3932 1313 / 1313 Output Total 1500 / 1500 1675 / 1675 4850 / 4850 2800 / 2800 Balance 1365 / 1365 -918 / -918 -1487 / -1487 Weight 124 kg 129.13 kg 129.302 kg 130.5 kg Microbiology Reports for the Last 24 Hours: Microbiology 02/25/22 00:38 Blood Blood Culture - Preliminary Gram Positive Cocci Constitutional Constitutional: no acute distress, morbidly obese and chronically ill appearing *Routine HEENT Exam Head: Present normocephalic Eye: Present EOMI and PERRL ENT: Present mucous membranes moist *Routine Neck Exam Neck: Present supple and trachea midline; Absent lymphadenopathy or thyromegaly *Routine Respiratory Exam Respiratory: Present decreased breath sounds, rhonchi, crackles and diminished air movement; Absent respiratory distress *Routine Cardiovascular Exam Cardiovascular: Present Normal S1, Normal S2 and tachycardia; Absent murmur *Routine Abdominal Exam Abdominal: Present soft, normoactive bowel sounds and surgical scars *Routine Extremities Exam Extremities: Present pulses intact and normal capillary refill; Absent edema *Routine Skin Exam Skin: Present warm and normal turgor; Absent rash *Routine Neurological Exam Neurological: Present alert and motor deficit; Absent oriented X3 or normal speech Routine Psychiatric Exam Psychiatric: Present cooperative Assessment and Plan *Assessment and plan (1) Sepsis: Status: Acute Category: Medical Code(s): A41.9 - Sepsis, unspecified organism (2) Pneumonia: Status: Acute Category: Medical Code(s): J18.9 - Pneumonia, unspecified organism (3) Dysphagia: Status: Acute Category: Medical Code(s): R13.10 - Dysphagia, unspecified (4) Seizure disorder: Status: Acute Category: Medical Code(s): G40.909 - Epilepsy, unspecified, not intractable, without status epilepticus (5) Autism: Status: Acute Category: Medical Code(s): F84.0 - Autistic disorder Plan 31-year-old
[2022-02-28 18:09] LABS: Body Fluid Culture, Sterile Not indicated. (.); Organism ID Not indicated. (.); Specimen Source Urine (.); Streptococcus pneumoniae Ag Negative (Negative)
--- NOTE | 2022-02-28 18:54 | PC.NURSE ---
Pt has had family at bedside the entire shift. lung sounds are diminished throughout. bowel sounds are active in all quads. pt was unable to have PEG placed this shift r/t body habitus. nad noted. pt is non verbal and non ambulatory. pt mother is able to give pt meds and get him to ear, otherwise pt is resistant to care.
[2022-03-01] VITALS: BP 158/90; PULSE 101; RESP 18; TEMP 37.2; O2SAT 94
--- NOTE | 2022-03-01 05:59 | PC.NURSE ---
no acute change since previous assessment. O2 sats >90% on RA. mother at bedside. call garcia in reach
[2022-03-01 06:25] VITALS: PULSE 95; PULSE 97; O2SAT 93
[2022-03-01 08:00] VITALS: BP 121/70; PULSE 120; TEMP 36.9; O2SAT 95
[2022-03-01 08:23] LABS: Chloride 111 mmol/L (98-107); Potassium 4.2 mmoL/L (3.5-5.1); Sodium 142 mmol/L (136-145)
[2022-03-01 08:26] LABS: Anion Gap 16.2 mEq/L (5-15); Blood Urea Nitrogen 8 mg/dl (9-20); Carbon Dioxide 19 mmol/L (22.0-30.0); Creatinine Clearance Estimated 183 mL/min (50-200); Estimated Glomerular Filt Rate 156 ml/min (>60); GFR (African American) 189 ML/MIN (>60)
[2022-03-01 08:27] LABS: Calcium 9.8 mg/dl (8.4-10.2); Glucose 139 mg/dl (74-100)
[2022-03-01 11:19] VITALS: BP 121/87; PULSE 105; RESP 17; TEMP 37.8; O2SAT 93
--- NOTE | 2022-03-01 12:10 | EXP.DC.SUM ---
General Admission date:: 02/25/22 Discharge date: 03/01/22 HPI HPI HPI: Mr. Overton is a 31-year-old male cared for in his home by his mother, non-verbal, bed bound status with a reported history of Autism, Seizure disorder, Gastroparesis and Osteoporosis.? He presented to [facility] today, 02/25/2022 due to concerns over his breathing and not appearing his normal self.? The patient was seen on admission in the ER.? Mother was at bedside and gave the information for the history and physical.? She reports that this evening the patient was not acting his normal self.? She reported that it seemed that he was having difficulty breathing, she reports that she gave the patient some ibuprofen and his symptoms continued so she brought him into the ER for evaluation.? In the ER, the patient was noted to be febrile with a temperature of 101.1, HR 121, WBC was 19.4, Cxray was concerning for a right basilar consolidation.? The patient will be admitted with initial impression of Sepsis with a concern for possible Aspiration Pneumonia.? The mother reports that the patient appears to be choking with thin liquids.? Cultures were drawn in the ER prior to antibiotic administration.? Speech will be consulted to see the patient. Hospital Course Hospital Course Hospital Course: 31-year-old male with reported history of Autism, Seizure disorder, non-verbal and bed bound status cared at home for by his mother who presented to the ER due to appearance of difficulty breathing and acting outside his normal, imaging and diagnostics concerning for Sepsis and aspiration pneumonia. Admitted for treatment of pneumonia. Showed improvement in defervescent's in his sepsis with IV antibiotics. Given concern for aspiration, speech and surgery were consulted. Surgery was unable to place PEG tube due to patient's body habitus. Modifications were made to diet however patient refused to eat given his sensory disorder/autism. Shared decision making with family discussing risks and benefits of transitioning back to regular diet. Family preferred to allow him to eat and drink given the slight increased risk in recurring pneumonia. Would benefit from outpatient referral to GI for further discussion about risks and benefits of feeding tube. Patient improved with his pneumonia, stable on room air for over 24 hours. Afebrile for over 24 hours. White cell count improved. Transitioned to oral antibiotics to complete empiric course for pneumonia. Discharged into the care of his mother to complete antibiotic course. Would benefit from follow-up with his primary care. Problems during hospitalization addressed as follows: Sepsis (POA) Pneumonia, suspected aspiration Dysphagia - Sepsis criteria met on admission:? Temperature 101.1, HR 121, WBC 19.4, Suspected source Pneumonia. Blood cultures obtained showing contaminant after speciation. Given improvement on Unasyn, transition to Augmentin to complete empiric antibiotic course. Chest imaging showed right basilar consolidation. Would benefit from repeat imaging in the coming weeks to show resolution. Speech was evaluated who recommended pur?e and honey thick liquids however patient refused to eat given his sensory disorder/autism. Transition back to regular diet and thin liquids after discussion with family. Would benefit from referral to GI, placed at discharge with Dr. Weber in [place], for discussion about risks and benefits of feeding tube placement. Other infectious work-up for pneumonia including urine strep, Legionella, and sputum cultures negative at time of discharge. Seizure Disorder - Continued home regime Autism - Cared for in home by mother - non-ambulatory, complicates his condition and treatment options. Exam Data for Last 24 hours Vital signs and Labs for Last 24 Hours: Temp Pulse Resp BP Pulse Ox FiO2 100.0 F H 105 H 17 121/87 93 L 100 03/01/22 11:19 03/01/22 11:19 03/01/22 11:19 03/01/22
--- NOTE | 2022-03-01 15:51 | HMH.PHAINT1 ---
Pharmacy Intervention Comments: DISCHARGE MEDICATION COUNSELING PROVIDED TO FATHER AND MOTHER. DISCUSSED STARTING AUGMENTIN (Q12H, GIVE WITH FOOD, MAY CAUSE UPSET STOMACH/NAUSEA/DIARRHEA), DUONEBS (EVERY 6 HOURS NEEDED FOR SHORTNESS OF BREATH, CAN CAUSE JITTERY FEELING/RESTLESSNESS), AND NYSTATIN (FOR THRUSH, GIVE FOUR TIMES DAILY). MOTHER VERBALIZED NO QUESTIONS AT THIS TIME.
--- NOTE | 2022-03-02 12:41 | CARE MANAGER ---
Contacted patient's mother. She states he is doing well, but still not drinking the best. She picked up his medications and deny any questions or concerns. She is aware of his follow up appointments. ANTONIO Hawkins
[2022-03-03 16:33] LABS: Legionella pneumophila Urinary Negative (Negative)
== END 2022-03-01 16:15 | disposition home or self-care (01) | DRG 178 ==
LOC: ER 01:56 → 2ND 02:12
PROVIDERS: Nurse Practitioner Family; Surgery; Admitting Provider Family Medicine; Emergency Provider Emergency Medicine; PCP Family Medicine; Visit Provider Internal Medicine Adolescent Medicine
PROC: 0DH63UZ Insertion of Feeding Device into Stomach, Percutaneous Approach (ICD-10-PCS; CPT 43246; principal; 2022-02-28 09:30)
DX: J69.0 Pneumonitis due to inhalation of food and vomit (principal); F84.0 Autistic disorder; G40.909 Epilepsy, unspecified, not intractable, without status epilepticus; Z74.01 Bed confinement status; K31.89 Other diseases of stomach and duodenum; M81.0 Age-related osteoporosis without current pathological fracture
CPT/HCPCS: 43235; 36415; 51702; 71045; 71250; 80048; 80053; 81001; 82803; 83605; 84145; 85007; 85025; 85651; 86140; 87040; 87077; 87186; 87807; 87899; 92526; 92610; 93005; 94640; 99285; C9803; J0456; J0696; U0003; U0005

== ENCOUNTER 2023-11-29 21:10 | Emergency (ER) | payer BC, MEDICAID, SELFPAY ==
[2023-11-29 21:11] VITALS: BP 134/95; PULSE 122; RESP 20; TEMP 37.1; O2SAT 98; BMI 40.6
--- NOTE | 2023-11-29 21:15 | ED_ITS ---
<Statement entered by Ashli Dent DO - 11/29/23 23:59> I was consulted by the MATEO, and we discussed the complexity of the problems being addressed. I approved the treatment and management plan for this patient's care in the emergency department, thus performing a substantive portion of the medical decision making. Ashli Dent DO Discharge Plan Disposition Patient Disposition: Home, Self-Care Condition: Fair Prescriptions Prescriptions: New azithromycin 500 mg tablet 500 mg PO DAILY 10 Days Qty: 10 0RF amoxicillin-pot clavulanate 875-125 mg tablet 1 tab PO BID Qty: 20 0RF No Action famotidine 20 MG tablet 20 mg PO DAILY zonisamide 100 MG capsule 100 mg PO BID zonisamide 50 MG capsule 50 mg PO BID topiramate 100 MG tablet 300 mg PO DAILY topiramate 100 MG tablet 500 mg PO HS clobazam [Onfi] 20 MG tablet 20 mg PO BID Rx Instructions: MUST BE BRAND NAME - does not tolerate generic form montelukast 10 MG tablet 10 mg PO PM L.acid,para-B.bifidum-S.therm 1 CAP capsule 1 cap PO DAILY lansoprazole [Prevacid] 30 mg capsule,delayed release(DR/EC) 30 mg PO BID Patient Comments: TAKE 1 CAPSULE BY MOUTH TWICE DAILY levetiracetam [Keppra] 1,000 mg tablet 2,000 mg PO BID Patient Comments: TAKE 2 TABLETS BY MOUTH TWICE DAILY Rx Instructions: Brand only Nayzilam 5 mg/spray (0.1 mL) spray,non-aerosol 1 spray INTRANASAL DIRECTED PRN (Reason: Seizures) Rx Instructions: 1 spray in one nostril as needed nystatin 100,000 unit/mL Suspension 500,000 unit PO QID 8 Days Qty: 160 0RF ipratropium-albuterol 0.5 mg-3 mg(2.5 mg base)/3 mL Solution For Nebulization 3 ml inhalation Q6HP PRN (Reason: Shortness Of Breath Or Wheezing) 30 Days Qty: 120 0RF amoxicillin-pot clavulanate 875-125 mg tablet 1 tab PO Q12H 5 Days Qty: 10 0RF Referrals Follow up/Referrals: Toney Christopher [Primary Care Provider] - See instructions Activity Restrictions/Add. Instructions Additional Instructions/Restrictions: Follow-up with your PCP as scheduled follow-up with your neurologist as scheduled return to ER for any worsening signs or symptoms as needed. Clinical Impressions Clinical Impression: Breakthrough seizure Left lower lobe pneumonia Qualifiers: Pneumonia type: due to unspecified organism Qualified Code(s): J18.9 - Pneumonia, unspecified organism Instructions Patient Instructions: DI for Pneumonia -- Adult, DI for Seizure Disorder -- Child Print Language Print Language: Yakut Discharge ED Provider: Ashli Dent General Adult HPI <LAMIN Nelson - Last Filed: 11/29/23 23:42> General Chief complaint: Seizure Stated complaint: seizures Time Seen by Provider: 11/29/23 21:13 History of Present Illness HPI narrative: Patient presents for evaluation of seizures. Patient has a lifelong history of seizure disorder since infancy, history of autism, history of feeding difficulty and dysphagia with frequent episodes of aspiration, GERD who is bedbound total care and nonverbal. Mom reports that he has had 6 seizures in the last 24 hours to yesterday and 4 today. He has been complaining of pain that she describes as in his head and has been picking at his nose as well. He is eating and drinking normally with normal elimination patterns. He is not missed any doses of antiepileptic medication. 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 09/25/18 02/25/22 montelukast 10 mg tablet 10 mg PO PM Breathing problems 09/25/18 02/25/22 topiramate 100 mg tablet 300 mg PO DAILY Seizures 09/25/18 02/25/22 topiramate 100 mg tablet 500 mg PO HS Seizures 09/25/18 02/25/22 famotidine 20 mg tablet 20 mg PO DAILY acid reflux 03/22/20 02/25/22 zonisamide 100 mg capsule 100 mg PO BID seizures 03/22/20 02/25/22 zonisamide 50 mg capsule 50 mg PO BID seizures 03/22/20 02/25/22 L.acidophilus-L.paracasei-B.bifidum-S.thermophl 1 cap PO DAILY probiotic 02/25/22 02/25/22 8 billion cell capsule lansoprazole 30 mg capsule,delayed 30 mg PO BID acid reflux 02/25/22 02/25/22 release (Prevacid) levetiracetam 1,000 mg tablet 2,000 mg PO BID seizures 02/25/22 02/25/22 (Keppra) midazolam 5 mg/spray (0.1 mL) 1 spray intranasal DIRECTED PRN 02/25/22 02/25/22 nasal spray (Nayzilam) Seizures Previous Rx's ?Medication ?Instructions ?Recorded amoxicillin 875 mg-potassium 1 tab PO Q12H 5 days #10 tabs 03/01/22 clavulanate 125 mg tablet ipratropium 0.5 mg-albuterol 3 mg 3 ml inhalation Q6HP PRN Shortness 03/01/22 (2.5 mg base)/3 mL nebulization Of Breath Or Wheezing 30 days #120 soln mL nystatin 100,000 unit/mL oral 500,000 unit (5 mL) PO QID 8 days 03/01/22 suspension #160 mL amoxicillin 875 mg-potassium 1 tab PO BID #20 tabs 11/29/23 clavulanate 125 mg tablet azithromycin 500 mg tablet 500 mg PO DAILY 10 days #10 tabs 11/29/23 Allergies Allergy/AdvReac Type Severity Reaction Status Date / Time carbamazepine [From TEGRETOL] Allergy Mild Verified 09/25/18 17:49 [facility] <LAMIN Nelson - Last Filed: 11/29/23 23:42> [facility] Disclaimer: The information contained in this section may have been updated after the patient was seen, as this information can be updated by other users. Medical History (Updated 11/29/23 @ 23:30 by LAMIN Nelson) History of jejunostomy tube placement Osteoporosis Gastroparesis Seizure disorder Autism Surgical History H/O brain surgery Family History Other Family history non-contributory Social History (Updated 02/28/22 @ 11:03 by Juan Khan CRNA) Smoking Status: Never smoker alcohol intake: never substance use type: denies use current occupational status: disabled Travel in the last 8 weeks: None household members: family housing: house lives independently: No marital status: single service: No longterm: No pets and animals: Yes (Cat) pets and animals: cat(s) sexually active: No <LAMIN Nelson - Last Filed: 11/29/23 23:42> ROS Obtained: Yes unobtainable due to mental status and Yes unobtainable due to mental condition Physical Exam <LAMIN Nelson - Last Filed: 11/29/23 23:42> General General appearance: alert and in no apparent distress Head Head exam: atraumatic and normal inspection Eye Eye exam: Present normal appearance and PERRL ENT ENT exam: Present normal exam, normal oropharynx and mucous membranes moist Neck Neck exam: Present normal inspection; Absent tenderness Chest Chest inspection: Present normal inspection and symmetric chest wall rise; Absent tenderness Respiratory Respiratory exam: Present normal lung sounds bilaterally; Absent respiratory distress Cardiovascular Cardiovascular exam: Present regular rate, normal rhythm and normal heart sounds Abdominal Exam Abdominal exam: Present soft (Obese) and normal bowel sounds; Absent distention, tenderness, guarding, rebound or rigidity Extremities Exam Extremities exam: Present normal inspection Back Exam Back exam: Present normal inspection Neurological Exam Neurological exam: Present alert; Absent oriented X3 or normal gait (Patient is bedbound) Psychiatric Psychiatric exam: Present other (Patient is nonverbal) Skin Skin exam: Present warm, dry and normal color Medical Decision Making <LAMIN Nelson - Last Filed: 11/29/23 23:42> Medical Records Medical records reviewed: Yes I reviewed the patient's medical records. Edy Inquiry Pt receiving controlled substance: No Vital Signs: 11/29/23 21:11 Temperature 98.8 F Temperature Source Axillary Pulse Rate [Left] 122 H Respiratory Rate 20 Blood Pressure [Right Arm] 134/95 H Blood Pressure Mean [Right Arm] 108 Blood Pressure Source [Right Arm] Automatic Cuff Blood Pressure Position [Right Arm] Supine 02 Sat by Pulse Oximetry 98 Oxygen Delivery Method Room Air Lab Data Lab results reviewed: Yes I reviewed the patient's lab results. Lab Results 11/29/23 21:55: WBC 14.2 H, RBC 5.65, Hgb 16.1, Hct 50.5, MCV 89.5, MCH 28.5, MCHC 31.8, RDW 14.2, Plt Count 372, MPV 8.5, Neut % (Auto) 86.3 H, Lymph % (Auto) 7.2 L, [place] % (Auto) 5.0, Eos % (Auto) 1.1, Baso % (Auto) 0.5, Neut # (Auto) 12.3 H, Lymph # (Auto) 1.0, [place] # (Auto) 0.7, Eos # (Auto) 0.2, Baso # (Auto) 0.1, Total Counted 100, Neutrophils % (Manual) 90 H, Lymphocytes % (Manual) 6 L, Atypical Lymphs % 1.0, Monocytes % (Manual) 3, RBC Morphology Normal, Sodium 144, Potassium 4.5, Chloride 117 H, Carbon Dioxide 18 L, Anion Gap 13.5, BUN 10, Creatinine 0.70, Estimated Creat Clear 262, Estimated GFR 129, Est GFR ( Amer) 156, Glucose 112 H, Calcium 9.6, Magnesium 2.2, Total Bilirubin 0.4, AST 34, ALT 36, Alkaline Phosphatase 124, Total Protein 7.7, Albumin 4.6, Globulin 3.1, Albumin/Globulin Ratio 1.5 11/29/23 22:35: Lactate 0.9 11/29/23 21:55 11/29/23 21:55 Orders (Tests/Meds): ED MEDICATIONS Discontinued Medications Generic Name Dose Route Start Last Admin Trade Name Freq PRN Reason Stop Dose Admin Acetaminophen 1,000 mg 11/29/23 21:34 11/29/23 21:57 Acetaminophen 1,000mg/100ml Vial IV 11/29/23 21:35 1,000 mg ONCE ONE Administration Amoxicillin/Clavulanate Potassium 1 each 11/29/23 23:28 Amoxicillin/Clavulanate Potassium 875/125mg Tablet PO 11/29/23 23:29 ONCE ONE Azithromycin 500 mg 11/29/23 23:28 Azithromycin 250mg Tablet PO 11/29/23 23:29 ONCE ONE Lactated Ringer's 1,000 mls @ 999 mls/hr 11/29/23 21:34 11/29/23 21:57 Lactated Ringer's 1000 Ml Bag IV 11/29/23 22:34 999 mls/hr .Q1H1M ONE Administration ORDERS Category Date Time Status CT head/brain wo con Stat Cat Scan 11/29/23 21:34 Completed XR chest portable Stat Exams 11/29/23 21:46 Completed CBC w/Auto Diff [Complete Blood Count Auto Diff] Stat Lab 07/31/24 21:55 Completed CMP [Comprehensive Metabolic Panel] Stat Lab 11/29/23 21:55 Completed Lactic Acid Stat Lab 11/29/23 22:35 Completed Magnesium Stat Lab 11/29/23 21:55 Completed UA [Urinalysis and Microscopic] Stat Lab 11/29/23 21:34 Ordered Medical Decision Narrative: In summary patient is a 33-year-old male who presents to the emergency department for evaluation of seizures. Patient is hemodynamically stable upon arrival, afebrile. Physical exam is remarkable for a morbidly obese 33-year-old gentleman who is bedbound has slight contractions to his hands has muscle atrophy in his bilateral lower extremities who is awake and interactive but is nonverbal does not follow commands at baseline. I can find no focal abnormalities on exam including normal breath sounds no abdominal tenderness to palpation.. Differential diagnosis includes occult infection, electrolyte abnormality, missed dose of medication etc. Initial workup will be conducted with hematologic labs, chest x-ray, CT scan of the head catheterized urine. Initial interventions include crystalloid Tylenol. Initial workup reviewed by me shows an elevated white count with the remainder of his hematologic labs being nonactionable and my informal interpretation of his radiologic exams shows a right lower lobe pneumonia but no acute intracranial process. Upon repeat evaluation patient's mother states that he has not had another seizure other than the first when he had when he got here.. Given this I had interactive discussion with the neurology service on-call for patient's primary neurologist and spoke with at [facility] in [place]. He recommended giving Ativan Topamax and transferring for closer observation. I had interactive discussion with the mother about the recommendations and she adamantly declined and felt she could best care for him at home if he was appropriate for him to be sent home. We had a interactive discussion about the presentations and findings risk and benefits of inpatient versus outpatient management. Via patient directed discharge mother is confident that she has all the tools in place at home to care for his seizures as long as he has antibiotics. Given that patient is appropriate for discharge with prescription for Augmentin and azithromycin with first dose is given here. <Ashli Dent, DO - Last Filed: 11/29/23 22:01> Vital Signs: 11/29/23 21:11 Temperature 98.8 F Temperature Source Axillary Pulse Rate [Left] 122 H Respiratory Rate 20 Blood Pressure [Right Arm] 134/95 H Blood Pressure Mean [Right Arm] 108 Blood Pressure Source [Right Arm] Automatic Cuff Blood Pressure Position [Right Arm] Supine 02 Sat by Pulse Oximetry 98 Oxygen Delivery Method Room Air Lab Data Lab Results 11/29/23 21:55: WBC 14.2 H, RBC 5.65, Hgb 16.1, Hct 50.5, MCV 89.5, MCH 28.5, MCHC 31.8, RDW 14.2, Plt Count 372, MPV 8.5, Neut % (Auto) 86.3 H, Lymph % (Auto) 7.2 L, [place] % (Auto) 5.0, Eos % (Auto) 1.1, Baso % (Auto) 0.5, Neut # (Auto) 12.3 H, Lymph # (Auto) 1.0, [place] # (Auto) 0.7, Eos # (Auto) 0.2, Baso # (Auto) 0.1, Total Counted 100, Neutrophils % (Manual) 90 H, Lymphocytes % (Manual) 6 L, Atypical Lymphs % 1.0, Monocytes % (Manual) 3, RBC Morphology Normal, Sodium 144, Potassium 4.5, Chloride 117 H, Carbon Dioxide 18 L, Anion Gap 13.5, BUN 10, Creatinine 0.70, Estimated Creat Clear 262, Estimated GFR 129, Est GFR ( Amer) 156, Glucose 112 H, Calcium 9.6, Magnesium 2.2, Total Bilirubin 0.4, AST 34, ALT 36, Alkaline Phosphatase 124, Total Protein 7.7, Albumin 4.6, Globulin 3.1, Albumin/Globulin Ratio 1.5 11/29/23 22:35: Lactate 0.9 Orders (Tests/Meds): ED MEDICATIONS Discontinued Medications Generic Name Dose Route Start Last Admin Trade Name Marquisq PRN Reason Stop Dose Admin Acetaminophen 1,000 mg 11/29/23 21:34 11/29/23 21:57 Acetaminophen 1,000mg/100ml Vial IV 11/29/23 21:35 1,000 mg ONCE ONE Administration Amoxicillin/Clavulanate Potassium 1 each 11/29/23 23:28 Amoxicillin/Clavulanate Potassium 875/125mg Tablet PO 11/29/23 23:29 ONCE ONE Azithromycin 500 mg 11/29/23 23:28 Azithromycin 250mg Tablet PO 11/29/23 23:29 ONCE ONE Lactated Ringer's 1,000 mls @ 999 mls/hr 11/29/23 21:34 11/29/23 21:57 Lactated Ringer's 1000 Ml Bag IV 11/29/23 22:34 999 mls/hr .Q1H1M ONE Administration ORDERS Category Date Time Status CT head/brain wo con Stat Cat Scan 11/29/23 21:34 Completed XR chest portable Stat Exams 11/29/23 21:46 Completed CBC w/Auto Diff [Complete Blood Count Auto Diff] Stat Lab 11/29/23 21:55 Completed CMP [Comprehensive Metabolic Panel] Stat Lab 11/29/23 21:55 Completed Lactic Acid Stat Lab 11/29/23 22:35 Completed Magnesium Stat Lab 11/29/23 21:55 Completed UA [Urinalysis and Microscopic] Stat Lab 11/29/23 21:34 Ordered ECG Data Tracing #1: I reviewed this ECG and interpreted as documented below: Sinus tachycardia with a ventricular rate of [address] changes concerning for ischemia. Normal axis and intervals. ECG initial impression date: 11/29/23 ECG initial impression time: 22:00 Critical Care <LAMIN Nelson - Last Filed: 11/29/23 23:42> Critical Care Time Critical Care Time: No
--- NOTE | 2023-11-29 21:27 | PC.NURSE ---
Seizure pads placed on bed, mother at bedside
--- NOTE | 2023-11-29 21:34 | CT_ITS ---
PROCEDURE INFORMATION: Exam: CT Head Without Contrast Exam date and time: 11/29/2023 10:19 PM Age: 33 years old Clinical indication: Other: Seizure TECHNIQUE: Imaging protocol: Computed tomography of the head without contrast. Radiation optimization: All CT scans at this facility use at least one of these dose optimization techniques: automated exposure control; mA and/or kV adjustment per patient size (includes targeted exams where dose is matched to clinical indication); or iterative reconstruction. COMPARISON: No relevant prior studies available. FINDINGS: Limitations: Patient motion. Brain: No definite acute intracranial hemorrhage. No midline shift or intracranial mass effect. Cerebral ventricles: No obstructive hydrocephalus. Paranasal sinuses: Visualized sinuses are unremarkable. No fluid levels. Mastoid air cells: Visualized mastoid air cells are well aerated. Bones: No definite acute calvarial fracture. Soft tissues: Unremarkable. IMPRESSION: 1. Motion limited examination. 2. No definite acute intracranial abnormality.
--- NOTE | 2023-11-29 21:46 | XR_ITS ---
PROCEDURE INFORMATION: Exam: XR Chest Exam date and time: 11/29/2023 10:04 PM Age: 33 years old Clinical indication: Other: Seizure; Additional info: Seizure, 2 review TECHNIQUE: Imaging protocol: Radiologic exam of the chest. Views: 1 view. COMPARISON: CT CHEST WO CON 02/26/2022 1:24 AM FINDINGS: Tubes, catheters and devices: Left chest stimulator device. Lungs: Low lung volumes. Right basilar atelectasis. Left basilar atelectasis and/or infiltrate. Pleural spaces: No gross pneumothorax to the degree visualized. Heart/Mediastinum: Unremarkable. No cardiomegaly. Bones/joints: Unremarkable. Other findings: Apices are obscured by head position. IMPRESSION: Left basilar atelectasis and/or infiltrate.
[2023-11-29] MEDS: LACTATED RINGERS 1000ML 1,000 ML 999 ML IV (21:57)
[2023-11-29] MEDS: ACETAMINOPHEN 1,000MG/100ML VIAL 1000 MG IV (21:57)
--- NOTE | 2023-11-29 21:58 | ECG_ITS ---
APPROVED REPORT Exam: Resting ECG HR:114 bpm ECG Measurements Heart Rate 114 AXES WA 170 P 45 QRSd 100 QRS 90 QT 329 T 48 QTc 397 Conclusion SINUS TACHYCARDIA LOW QRS VOLTAGE IN PRECORDIAL LEADS [QRS DEFLECTION < 1.0 mV IN CHEST LEADS] POSSIBLE RIGHT VENTRICULAR CONDUCTION DELAY [RSR (QR) IN V1/V2] POSSIBLE INFERIOR MYOCARDIAL INFARCTION , OF INDETERMINATE AGE [30 ms Q WAVE IN II/aVF] ABNORMAL ECG INTERPRETATION BASED ON A DEFAULT AGE OF 39 YEARS Electronically signed by : KARUNA CUMMINGS, 11/30/2023 00:47:31
[2023-11-29 22:02] LABS: Basophils # 0.1 K/mm3 (0-0.2); Basophils % 0.5 % (0.1-2.0); Eosinophils # 0.2 K/mm3 (0.0-0.4); Eosinophils % 1.1 % (0.1-12.0); Hematocrit 50.5 % (42.0-52.0); Hemoglobin 16.1 g/dL (14.1-18.0); Lymphocytes % 7.2 % (10-50); Mean Corpuscular HGB Conc 31.8 g/dL (31.8-35.4); Mean Corpuscular Hemoglobin 28.5 pg (27.0-31.2); Mean Corpuscular Volume 89.5 fl (80-94); Mean Platelet Volume 8.5 fl (7.4-10.4); Monocytes # 0.7 K/mm3 (0.1-1.0); Neutrophils # 12.3 K/mm3 (1.8-7.8); Neutrophils % 86.3 % (37.0-80.0); Platelet Count 372 K/mm3 (142-424); Red Blood Count 5.65 M/mm3 (4.60-6.20); Red Cell Distribution Width 14.2 % (11.5-17.5); White Blood Count 14.2 K/mm3 (4.8-10.8)
[2023-11-29 22:09] LABS: Chloride 117 mmol/L (98-107)
[2023-11-29 22:10] LABS: Albumin Level 4.6 g/dl (3.5-5.0); Potassium 4.5 mmoL/L (3.5-5.1); Sodium 144 mmol/L (136-145)
[2023-11-29 22:12] LABS: Anion Gap 13.5 mEq/L (5-15); Blood Urea Nitrogen 10 mg/dl (9-20); Carbon Dioxide 18 mmol/L (22.0-30.0); Creatinine Clearance Estimated 262 mL/min (50-200); Estimated Glomerular Filt Rate 129 ml/min (>60); GFR (African American) 156 ML/MIN (>60)
[2023-11-29 22:13] LABS: Alanine Aminotransferase 36 U/L (12-78); Albumin/Globulin Ratio 1.5 (1.1-1.8); Alkaline Phosphatase 124 U/L (38-126); Aspartate Amino Transferase 34 U/L (17-59); Bilirubin,Total 0.4 mg/dl (0.2-1.3); Calcium 9.6 mg/dl (8.4-10.2); Globulin 3.1 g/dL (1.3-3.2); Glucose 112 mg/dl (74-100); Magnesium 2.2 mg/dl (1.6-2.3); Total Protein,Serum 7.7 g/dl (6.3-8.2)
[2023-11-29 22:25] LABS: MANUAL DIFFERENTIAL MANUAL DIFFERENTIAL (MANUAL DIFF)
[2023-11-29 22:48] LABS: Lactic Acid 0.9 mmol/L (0.7-2.1)
[2023-11-29 23:14] LABS: Lymphocytes % 6 % (10-50); Monocytes % 3 % (2-9); Neutrophils % 90 % (42-76); Total Cells Counted 100
[2023-11-29 23:15] LABS: RBC Morphology Normal
--- NOTE | 2023-11-29 23:19 | PC.NURSE ---
speaking with physician
[2023-11-29] MEDS: AMOXICILLIN/CLAVULANATE POTASSIUM 875/125MG TABLET 1 EACH PO (23:48)
[2023-11-29] MEDS: AZITHROMYCIN 250MG TABLET 500 MG PO (23:48)
[2023-11-30 00:09] VITALS: BP 135/92; PULSE 99; RESP 16; TEMP 37.2; O2SAT 98
== END 2023-11-30 00:35 | disposition home or self-care (01) ==
PROVIDERS: Physician Assistant; Emergency Provider Emergency Medicine; PCP Family Medicine
DX: G40.909 Epilepsy, unspecified, not intractable, without status epilepticus (principal); J18.9 Pneumonia, unspecified organism; F84.0 Autistic disorder; K21.9 Gastro-esophageal reflux disease without esophagitis; R00.0 Tachycardia, unspecified; Z74.01 Bed confinement status
CPT/HCPCS: 70450; 71045; 80053; 83605; 83735; 85007; 85025; 85027; 93005; 96361; 96374; 99285; J0131; J7120